=== PATIENT | male | born 1960 ===

== ENCOUNTER 2017-04-10 06:57 | Emergency (ER) | payer MEDICARE, OTHER ==
[2017-04-10 07:07] VITALS: BP 167/100; PULSE 101; RESP 17; TEMP 98; O2SAT 98
--- NOTE | 2017-04-10 07:53 | ED PDOC ---
HPI: General Adult Time Seen by Provider: 04/10/17 07:08 Chief Complaint (Nursing): Abnormal Skin Integrity Chief Complaint (Provider): Abnormal Skin Integrity History Per: Patient History/Exam Limitations: no limitations Onset/Duration Of Symptoms: Days Current Symptoms Are (Timing): Still Present Severity: Mild Additional Complaint(s): Patient is a 56 year old male who presents to ED for multiple medical complaints including rash, "lip heaviness", bilateral arm weakness, dizziness, "head heaviness" and palpations that began yesterday. Patient states rash is itchy and diffuse. Denies chest pain, headache, vision changes or neck pain. 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 Of note, patient reports he ran out of his Norvasc 10mg yesterday. PMD: Dr. Linda Rodriges Past Medical History Reviewed: Historical Data, Nursing Documentation, Vital Signs Vital Signs: Last Vital Signs Temp 98.0 F 04/10/17 07:04 Pulse 101 H 04/10/17 07:04 Resp 17 04/10/17 07:04 BP 167/100 H 04/10/17 07:04 Pulse Ox 98 04/10/17 07:57 - Medical History PMH: Anxiety, Bipolar Disorder, CVA, Depression, HTN, Hypercholesterolemia Denies: Diabetes, Hepatitis, HIV, Chronic Kidney Disease, Seizures, Sexually Transmitted Disease - Surgical History Surgical History: No Surg Hx - Family History Family History: States: Unknown Family Hx - Immunization History Hx Tetanus Toxoid Vaccination: No Hx Influenza Vaccination: No Hx Pneumococcal Vaccination: No - Home Medications Home Medications: Ambulatory Orders Medication Instructions Recorded Escitalopram [Lexapro] 1 tab PO DAILY 12/11/14 Diphenhydramine HCl/Zinc Acet 28.3 gm TP DAILY PRN #1 cream..g. 04/10/17 [Benadryl Itch Stopping Crm] - Allergies Allergies/Adverse Reactions: Allergies Allergy/AdvReac Type Severity Reaction Status Date / Time No Known Allergies Allergy Verified 06/25/16 05:59 Review of Systems ROS Statement: Except As Marked, All Systems Reviewed And Found Negative Constitutional: Negative for: Fever, Chills Eyes: Negative for: Vision Change Cardiovascular: Positive for: Palpitations. Negative for: Chest Pain, Light Headedness Respiratory: Negative for: Shortness of Breath Gastrointestinal: Negative for: Nausea, Vomiting, Abdominal Pain Musculoskeletal: Negative for: Neck Pain, Back Pain Skin: Positive for: Rash Neurological: Positive for: Weakness (bilateral arms ), Dizziness, Other (" head heaviness" ). Negative for: Numbness, Headache Physical Exam - Reviewed Nursing Documentation Reviewed: Yes Vital Signs Reviewed: Yes - Physical Exam Appears: Positive for: Non-toxic, No Acute Distress Head Exam: Positive for: ATRAUMATIC Skin: Positive for: Normal Color, Warm, Rash (petechiae bilateral arms) Eye Exam: Positive for: Normal appearance Neck: Positive for: Normal, Painless ROM Cardiovascular/Chest: Positive for: Regular Rate, Rhythm. Negative for: Murmur Respiratory: Positive for: Normal Breath Sounds. Negative for: Respiratory Distress Extremity: Positive for: Normal ROM Neurologic/Psych: Positive for: Alert, Oriented, Facial Droop (chronic left secondary to bells palsy ). Negative for: Motor/Sensory Deficits - Laboratory Results Result Diagrams: 04/10/17 08:32 04/10/17 08:32 - ECG O2 Sat by Pulse Oximetry: 98 (RA) Pulse Ox Interpretation: Normal - CT Scan/US CT head Other Rad Studies (CT/US): Radiology Report Reviewed (No acute intracranial abnormalities. No significant findings to account for the clinical presentation. ) Medical Decision Making Medical Decision Making: Time: 724 Initial impression: Rash Initial plan: -- CT-head -- CMP -- CBC -- PT/PTT -- U/A Scribe Attestation: Documented by Amanda Ha acting as a scribe for Diana Wilkerson MD MD Scribe Attestation: All medical record entries made by the Scribe were at my direction and personally dictated by me. I have reviewed the chart and agree that the record accurately reflects my personal performance of the history, physical exam, medical decision making, and the department course for this patient. I have also personally directed, reviewed, and agree with the discharge instructions and disposition. Disposition - Clinical Impression Clinical Impression: Rash - Disposition Referrals: [facility] [Outside] Disposition: Routine/Home Disposition Time: 10:35 Condition: STABLE Prescriptions: Diphenhydramine HCl/Zinc Acet [Benadryl Itch Stopping Crm] 28.3 gm TP DAILY PRN #1 cream..g. PRN Reason: Itching / Pruritus Instructions: Acute Rash (ED)
[2017-04-10 08:43] LABS: BASO # 0.1 K/uL (0.0-0.2); BASO % 0.9 % (0.0-2.0); EOS # 0.3 K/uL (0.0-0.7); EOS % 4.3 % (0.0-4.0); HEMATOCRIT 41.7 % (35.0-51.0); LYMPH # 1.1 K/uL (1.0-4.3); LYMPH % 14.5 % (20.0-40.0); MEAN CELL VOLUME 82.6 fl (80.0-94.0); MEAN CORPUSCULAR HEMOGLOBIN 27.1 pg (27.0-31.0); MEAN CORPUSCULAR HGB CONC 32.9 g/dL (33.0-37.0); MEAN PLATELET VOLUME 9.3 fl (7.2-11.7); MONO # 0.6 K/uL (0.0-0.8); MONO % 8.2 % (0.0-10.0); NEUT # 5.4 K/uL (1.8-7.0); NEUT % 72.1 % (50.0-75.0); NRBC % 0.1 % (0.0-0.0); RED CELL DISTRIBUTION WIDTH 14.4 % (11.5-14.5); WHITE BLOOD COUNT 7.5 K/uL (4.8-10.8)
[2017-04-10 08:57] LABS: ALB/GLOB RATIO 1.3 (1.0-2.1); ALKALINE PHOSPHATASE 80 U/L (38-126); ALT/SGPT 36 U/L (21-72); AST/SGOT 46 U/L (17-59); BILIRUBIN,TOTAL 0.6 mg/dl (0.2-1.3); BLOOD UREA NITROGEN 23 mg/dl (9-20); CALCIUM 9.6 mg/dL (8.4-10.2); CARBON DIOXIDE 27 mmol/L (22-30); CHLORIDE 99 mmol/L (98-107); GFR AFRICAN-AMERICAN > 60; GLUCOSE,RANDOM 121 mg/dL (75-110); POTASSIUM 4.6 MMOL/L (3.6-5.0); SODIUM 139 mmol/l (132-148); TOTAL PROTEIN 8.3 G/DL (6.3-8.2)
[2017-04-10 09:16] LABS: PARTIAL THROMBOPLASTIN TIME 25.2 SECONDS (23.3-32.5)
[2017-04-10 10:12] LABS: RBC URINE 2 /hpf (0-3); URINE BACTERIA RARE (<OCC); URINE BILIRUBIN NEGATIVE (NEGATIVE); URINE BLOOD NEGATIVE (NEGATIVE); URINE COLOR YELLOW (YELLOW); URINE GLUCOSE (UA) NEG (Normal); URINE KETONE NEGATIVE (NEGATIVE); URINE LEUKOCYTE ESTERASE NEG Leu/uL (Negative); URINE PROTEIN NEGATIVE (NEGATIVE); URINE UROBILINOGEN 0.2-1.0 mg/dL (0.2-1.0); WBC URINE 2 /hpf (0-5)
--- NOTE | 2017-04-10 10:35 | CT ---
PROCEDURE: CT HEAD WITHOUT CONTRAST. HISTORY: UMANZOR COMPARISON: None available. TECHNIQUE: Axial computed tomography images were obtained through the head/brain without intravenous contrast. Radiation dose: Total exam DLP = ivan mGy-cm. This CT exam was performed using one or more of the following dose reduction techniques: Automated exposure control, adjustment of the mA and/or kV according to patient size, and/or use of iterative reconstruction technique. FINDINGS: HEMORRHAGE: No intracranial hemorrhage. BRAIN: No mass effect or edema. No atrophy or chronic microvascular ischemic changes. VENTRICLES: Unremarkable. No hydrocephalus. CALVARIUM: Unremarkable. PARANASAL SINUSES: Unremarkable as visualized. No significant inflammatory changes. MASTOID AIR CELLS: Unremarkable as visualized. No inflammatory changes. OTHER FINDINGS: None. IMPRESSION: No acute intracranial abnormalities. No significant findings to account for the clinical presentation.
== END 2017-04-10 11:11 | disposition home or self-care (01) ==
LOC: H.ER 06:57
DX: R21 Rash and other nonspecific skin eruption (principal); R42 Dizziness and giddiness; M62.81 Muscle weakness (generalized); I10 Essential (primary) hypertension; E11.9 Type 2 diabetes mellitus without complications

== ENCOUNTER 2017-07-12 08:50 | Inpatient (IN) | payer MEDICARE, OTHER ==
--- NOTE | 2017-07-12 09:50 | ED PDOC ---
Hyperglycemia/Hypoglycemia Time Seen by Provider: 07/12/17 09:20 Chief Complaint (Nursing): High Blood Sugar Chief Complaint (Provider): Generalized weakness History Per: Patient History/Exam Limitations: no limitations Onset/Duration Of Symptoms: Days (x 1 week) Current Symptoms Are (Timing): Still Present : The patient does not have any of the infectious symptoms listed except for those marked. Additional Complaint(s): Cachorro is a 57 y/o male with a past medical history of depression, hypertension, diabetes, and Arenas's palsy, who presents to the ED complaining of generalized weakness, ongoing for 1 week. Patient states he was evicted from home due to infestation of bed bugs and apartment is currently being decontaminated. Denies any associated chest pain, shortness or breath, or focal weakness. PMD: None Past Medical History Reviewed: Historical Data, Nursing Documentation, Vital Signs - Medical History PMH: Anxiety, Bipolar Disorder, CVA, Depression, Diabetes, HTN, Hypercholesterolemia Denies: Hepatitis, HIV, Chronic Kidney Disease, Seizures, Sexually Transmitted Disease Other PMH: Arenas's palsy - Surgical History Surgical History: No Surg Hx - Family History Family History: States: Unknown Family Hx - Social History Current smoker - smoking cessation education provided: No Alcohol: None Drugs: Denies - Immunization History Hx Tetanus Toxoid Vaccination: No Hx Influenza Vaccination: No Hx Pneumococcal Vaccination: No - Home Medications Home Medications: Ambulatory Orders Medication Instructions Recorded Escitalopram [Lexapro] 1 tab PO DAILY 12/11/14 Diphenhydramine HCl/Zinc Acet 28.3 gm TP DAILY PRN #1 cream..g. 04/10/17 [Benadryl Itch Stopping Crm] - Allergies Allergies/Adverse Reactions: Allergies Allergy/AdvReac Type Severity Reaction Status Date / Time No Known Allergies Allergy Verified 06/25/16 05:59 Review of Systems ROS Statement: Except As Marked, All Systems Reviewed And Found Negative Constitutional: Positive for: Weakness (Generalized weakness) Cardiovascular: Negative for: Chest Pain Respiratory: Negative for: Shortness of Breath Neurological: Negative for: Weakness (focal weakness) Physical Exam - Reviewed Nursing Documentation Reviewed: Yes Vital Signs Reviewed: Yes - Physical Exam Appears: Positive for: Non-toxic, No Acute Distress Head Exam: Positive for: ATRAUMATIC, NORMAL INSPECTION, NORMOCEPHALIC Skin: Positive for: Normal Color, Warm, Dry Eye Exam: Positive for: EOMI, Normal appearance, PERRL Neck: Positive for: Normal, Painless ROM, Supple Cardiovascular/Chest: Positive for: Regular Rate, Rhythm. Negative for: Murmur Respiratory: Positive for: Normal Breath Sounds. Negative for: Accessory Muscle Use, Respiratory Distress Gastrointestinal/Abdominal: Positive for: Normal Exam, Soft. Negative for: Tenderness Back: Positive for: Normal Inspection. Negative for: Vertebral Tenderness Extremity: Positive for: Normal ROM. Negative for: Pedal Edema, Deformity Neurologic/Psych: Positive for: Alert, Oriented (x 3), Other (Left facial weakness). Negative for: Motor/Sensory Deficits (peripheral motor or sensory deficits) - Laboratory Results Result Diagrams: 07/12/17 10:11 07/12/17 10:11 Medical Decision Making Medical Decision Making: Time: 9:42 Initial Plan: --CMP --CBC --Urine dipstick --EKG --Pending CXR 2 views Scribe Attestation: Documented by Gloria Main, acting as a scribe for Josiah Jacobson MD Provider Scribe Attestation: All medical record entries made by the Scribe were at my direction and personally dictated by me. I have reviewed the chart and agree that the record accurately reflects my personal performance of the history, physical exam, medical decision making, and the department course for this patient. I have also personally directed, reviewed, and agree with the discharge instructions and disposition. Disposition - Clinical Impression Clinical Impression: Anemia - Patient ED Disposition Is Patient to be Admitted: Yes - Disposition Disposition Time: 10:52 Condition: FAIR Forms: [employer] (Sinhala) - Pt Status Changed To: Hospital Disposition Of: Observation - POA Present On Arrival: None
[2017-07-12 10:16] LABS: BASO # 0.1 K/uL (0.0-0.2); BASO % 1.4 % (0.0-2.0); EOS # 0.3 K/uL (0.0-0.7); EOS % 3.1 % (0.0-4.0); HEMOGLOBIN 9.5 g/dL (12.0-18.0); LYMPH # 0.8 K/uL (1.0-4.3); LYMPH % 9.6 % (20.0-40.0); MEAN CORPUSCULAR HEMOGLOBIN 25.6 pg (27.0-31.0); MEAN PLATELET VOLUME 9.4 fl (7.2-11.7); MONO # 0.6 K/uL (0.0-0.8); MONO % 7.1 % (0.0-10.0); NEUT # 6.6 K/uL (1.8-7.0); NEUT % 78.8 % (50.0-75.0); PLATELET COUNT 259 K/uL (130-400); RBC 3.73 Mil/uL (4.40-5.90); WHITE BLOOD COUNT 8.4 K/uL (4.8-10.8)
[2017-07-12 10:35] LABS: ALB/GLOB RATIO 1.2 (1.0-2.1); ALBUMIN 4.3 g/dL (3.5-5.0); ALT/SGPT 40 U/L (21-72); AST/SGOT 36 U/L (17-59); BLOOD UREA NITROGEN 20 mg/dl (9-20); CALCIUM 9.6 mg/dL (8.4-10.2); GFR AFRICAN-AMERICAN > 60; GFR NON-AFRICAN AMERICAN > 60
[2017-07-12] MEDS ORDERED: Sodium Chloride 0.9% 1,000 ML IV STA (10:51)
--- NOTE | 2017-07-12 10:52 | RAD ---
HISTORY: weakness COMPARISON: Chest x-ray performed 12/12/16 TECHNIQUE: Chest PA and lateral FINDINGS: Examination limited by habitus. LUNGS: Right hilar prominence. No focal consolidation. Please note that chest x-ray has limited sensitivity for the detection of pulmonary masses. PLEURA: No significant pleural effusion identified. No definite pneumothorax . CARDIOVASCULAR: Heart size appears top normal. OSSEOUS STRUCTURES: Degenerative changes. VISUALIZED UPPER ABDOMEN: Elevation of the right hemidiaphragm. OTHER FINDINGS: None. IMPRESSION: Right hilar prominence. Elevation of the right hemidiaphragm.
[2017-07-12 10:54] LABS: BASOPHIL 1 % (0-2); EOSINOPHIL 2 % (0-7); LYMPHOCYTE 8 % (20-50); MONOCYTE 5 % (0-10); NEUTROPHIL 84 % (42-75); PLATELET ESTIMATE NORMAL (NORMAL); TOTAL CELLS COUNTED 100
--- NOTE | 2017-07-12 12:14 | CP.PCM.CON ---
Addendum entered and electronically signed by Oanh Valentine DO 07/12/17 13:04: After rounding with Dr. Dunbar, no plan for endoscopic evaluation at this time due to scabies infestation and capacity concern. No GI bleed at this time, continue to monitor, and can place on diet. Original Note: <Oanh Valentine - Last Filed: 07/12/17 12:45> History of Present Illness - History of Present Illness History of Present Illness: GI Fellow PGY4 Consult Note This is a 57yM with pmhx of HTN, DM, Arenas's palsy, Depression/Anxiety/Bipolar Disorder pw co of generalized weakness for 1 year. Pt reports that he has been experiencing fatigue, dizziness and intermittent SOB but denies any CP. Pt denies any signs of rectal bleeding, melena, hematochezia, abdominal pain, nausea or vomiting. He does state poor appetite for 1 yr, does not feel like eating from depression and does not like new living place. Pt denies any abdominal pain or diarrhea with food intake. No prior screening colonoscopy and no family hx of colon cancer. Pt reports that he has never been anemic and no hx of GI bleed. Pt does take baby aspirin daily but denies Advil, Aleve, or Ibuprohrn use. Pt does not have a hx of alcohol abuse. ROS: A 12pt ROS was obtained and was negative except as above PmHx: As stated in HPI PsHx: Denies FHx: Denies hx of cancer SHx: Denies tobacco, alcohol or illicit drug use Past Patient History - Infectious Disease Hx of Infectious Diseases: None - Past Social History Alcohol: None Drugs: Denies - CARDIAC Hx Cardiac Disorders: (HTN) - PULMONARY Hx Tuberculosis: No - NEUROLOGICAL Hx Neurological Disorder: (BELLS PALSY) - HEENT Hx HEENT Problems: No - RENAL Hx Chronic Kidney Disease: No - ENDOCRINE/METABOLIC Hx Endocrine Disorders: (DM) - HEMATOLOGICAL/ONCOLOGICAL Hx Human Immunodeficiency Virus (HIV): No - INTEGUMENTARY Hx Dermatological Problems: No - MUSCULOSKELETAL/RHEUMATOLOGICAL Hx Musculoskeletal Disorders: No - GASTROINTESTINAL Hx Gastrointestinal Disorders: No - GENITOURINARY/GYNECOLOGICAL Hx Sexually Transmitted Disorders: No - PSYCHIATRIC Hx Anxiety: Yes Hx Bipolar Disorder: Yes Hx Depression: Yes - SURGICAL HISTORY Hx Surgeries: No - ANESTHESIA Hx Anesthesia: No Meds Allergies/Adverse Reactions: Allergies Allergy/AdvReac Type Severity Reaction Status Date / Time No Known Allergies Allergy Verified 06/25/16 05:59 - Medications Medications: Current Medications Sodium Chloride (Sodium Chloride 0.9%) 1,000 mls @ 100 mls/hr IV .Q10H STA Stop: 07/12/17 20:50 Last Admin: 07/12/17 10:59 Dose: 100 mls/hr Physical Exam - Constitutional Appears: Non-toxic, No Acute Distress - Head Exam Head Exam: ATRAUMATIC, NORMAL INSPECTION, NORMOCEPHALIC - Eye Exam Eye Exam: EOMI, Normal appearance, PERRL Pupil Exam: PERRL - ENT Exam ENT Exam: Mucous Membranes Moist, Normal Exam - Neck Exam Neck exam: Positive for: Full Rom, Normal Inspection - Respiratory Exam Respiratory Exam: Clear to Auscultation Bilateral, NORMAL BREATHING PATTERN - Cardiovascular Exam Cardiovascular Exam: RRR, +S1, +S2 - GI/Abdominal Exam GI & Abdominal Exam: Normal Bowel Sounds, Soft. absent: Distended, Firm, Guarding, Organomegaly, Tenderness - Rectal Exam Additional comments: no hemorrhoids, light brown stool, no melena, no hematochezia - Extremities Exam Extremities exam: Positive for: full ROM, normal inspection - Back Exam Back exam: NORMAL INSPECTION - Neurological Exam Neurological exam: Alert, Oriented x3 - Psychiatric Exam Psychiatric exam: Anxious, Normal Mood - Skin Skin Exam: Dry, Intact, Normal Color, Warm Results - Vital Signs Recent Vital Signs: Last Vital Signs Temp 98 F 07/12/17 11:38 Pulse 72 07/12/17 11:38 Resp 17 07/12/17 11:38 BP 156/80 H 07/12/17 11:38 Pulse Ox 97 07/12/17 11:38 - Labs Result Diagrams: 07/12/17 10:11 07/12/17 10:11 Assessment & Plan - Assessment and Plan (Free Text) Assessment: This is a 57yM pw generalized weakness 1. Symptomatic anemia, microcytic 2. HTN 3. DM 4. Depression/Bipolar Disorder Plan: -Anemia with no signs of active GI bleeding,rectal exam negative for melena/ hematochezia, hemodynamically stable -Microcytic Anemia-will order iron profile study and celiac workup -Plan EGD/Colonoscopy for Saturday07/16/17 to r/o GI bleed as source of anemia also needs screening colonoscopy -Continue supportive care and monitor Hgb <Bettina RODRIGUEZ,[facility] - Last Filed: 07/12/17 13:16> Meds - Medications Medications: Current Medications Sodium Chloride (Sodium Chloride 0.9%) 1,000 mls @ 100 mls/hr IV .Q10H STA Stop: 07/12/17 20:50 Last Admin: 07/12/17 10:59 Dose: 100 mls/hr Results - Vital Signs Recent Vital Signs: Last Vital Signs Temp 98 F 07/12/17 11:38 Pulse 72 07/12/17 11:38 Resp 17 07/12/17 11:38 BP 156/80 H 07/12/17 11:38 Pulse Ox 97 07/12/17 11:38 - Labs Result Diagrams: 07/12/17 10:11 07/12/17 10:11 Attending/Attestation - Attestation I have personally seen and examined this patient.: Yes I have fully participated in the care of the patient.: Yes I have reviewed all pertinent clinical information: Yes Notes (Text): 07/12/17 13:12 Patient seen at bedside with GI fellow. This is a 57 yr old M presented with generalized weakness and hypoglycemia. Found to have microcytic anemia which is new. Rectal exam with brown stool. No overt signs of GI bleeding. Will order iron panel. Questionable history of alcohol abuse. During interview patient obsessively talks about the craven that was taken away from him. Prudent to do EGD / colonoscopy but currently has active bed bug infestation with belongings infested with it. Will hold off on luminal exam and can be done as outpatient. Diet as tolerated.
--- NOTE | 2017-07-12 13:18 | CARD ---
APPROVED REPORT EKG Measurement Heart [id number] <Conclusion> Normal sinus rhythm with sinus arrhythmia Left axis deviation Left ventricular hypertrophy with QRS widening Abnormal ECG
[2017-07-12 15:58] LABS: BASO # 0.1 K/uL (0.0-0.2); BASO % 0.9 % (0.0-2.0); EOS # 0.3 K/uL (0.0-0.7); EOS % 3.5 % (0.0-4.0); HEMOGLOBIN 8.8 g/dL (12.0-18.0); LYMPH # 1.2 K/uL (1.0-4.3); LYMPH % 14.3 % (20.0-40.0); MEAN CELL VOLUME 79.5 fl (80.0-94.0); MEAN CORPUSCULAR HEMOGLOBIN 25.5 pg (27.0-31.0); MEAN PLATELET VOLUME 9.1 fl (7.2-11.7); MONO # 0.7 K/uL (0.0-0.8); MONO % 8.9 % (0.0-10.0); NEUT # 5.8 K/uL (1.8-7.0); NEUT % 72.4 % (50.0-75.0); RBC 3.47 Mil/uL (4.40-5.90); RED CELL DISTRIBUTION WIDTH 14.1 % (11.5-14.5); WHITE BLOOD COUNT 8.1 K/uL (4.8-10.8)
[2017-07-12 17:04] LABS: IRON 15 ug/dL (49-181)
[2017-07-12 17:14] LABS: % IRON SATURATION 4 % (20-55); TOTAL IRON BINDING CAPACITY 374 ug/dL (250-450)
[2017-07-12 17:18] LABS: INR 1.2 (0.9-1.2); PARTIAL THROMBOPLASTIN TIME 26.2 Seconds (25.6-37.1); PROTHROMBIN TIME 12.5 Seconds (9.8-13.1)
[2017-07-13] MEDS: Pantoprazole 40 mg EC Tab PO SCH (08:34)
[2017-07-13 08:45] LABS: HDL CHOLESTEROL 38 MG/DL (30-70)
[2017-07-13 08:56] LABS: LDL CHOLESTEROL 99 mg/dL (0-129)
--- NOTE | 2017-07-13 13:28 | CP.PCM.HP ---
History of Present Illness - History of Present Illness History of Present Illness: 57 y/o male with PMHx that includes HTN, DM type( as per patient just controlled with diet at this time, he is not taking any medications), and depression who presents to ED c/o weakness for one and a half month. The weakness has been progressively getting worse, and reports one episode of blood in stools, and recent episodes of dizziness. Denies Cp, SOB, N/V, abdominal pain , black stools. Patient states he was evicted from home due to infestation of bed bugs and apartment is currently being decontaminated. Present on Admission - Present on Admission Any Indicators Present on Admission: No History of DVT/PE: No History of Uncontrolled Diabetes: No Urinary Catheter: No Decubitus Ulcer Present: No Review of Systems - Review of Systems All systems: reviewed and no additional remarkable complaints except (as per HPI ) Past Patient History - Infectious Disease Hx of Infectious Diseases: None - Past Social History Smoking Status: Former Smoker - CARDIAC Hx Cardiac Disorders: (HTN) - PULMONARY Hx Tuberculosis: No - NEUROLOGICAL Hx Neurological Disorder: (BELLS PALSY) - HEENT Hx HEENT Problems: No - RENAL Hx Chronic Kidney Disease: No - ENDOCRINE/METABOLIC Hx Endocrine Disorders: (DM) - HEMATOLOGICAL/ONCOLOGICAL Hx Human Immunodeficiency Virus (HIV): No - INTEGUMENTARY Hx Dermatological Problems: No - MUSCULOSKELETAL/RHEUMATOLOGICAL Hx Musculoskeletal Disorders: No Hx Falls: No - GASTROINTESTINAL Hx Gastrointestinal Disorders: No - GENITOURINARY/GYNECOLOGICAL Hx Sexually Transmitted Disorders: No - PSYCHIATRIC Hx Anxiety: Yes Hx Bipolar Disorder: Yes Hx Depression: Yes Hx Substance Use: No - SURGICAL HISTORY Hx Surgeries: No - ANESTHESIA Hx Anesthesia: No Meds Allergies/Adverse Reactions: Allergies Allergy/AdvReac Type Severity Reaction Status Date / Time No Known Allergies Allergy Verified 06/25/16 05:59 Physical Exam - Constitutional Appears: No Acute Distress - ENT Exam ENT Exam: Mucous Membranes Moist - Respiratory Exam Respiratory Exam: Clear to Auscultation Bilateral, NORMAL BREATHING PATTERN - Cardiovascular Exam Cardiovascular Exam: REGULAR RHYTHM, +S1, +S2 - GI/Abdominal Exam GI & Abdominal Exam: Normal Bowel Sounds, Soft. absent: Distended, Guarding, Rebound, Rigid, Tenderness - Extremities Exam Extremities exam: Positive for: normal inspection. Negative for: calf tenderness, pedal edema - Neurological Exam Neurological exam: Alert, Oriented x3 - Skin Skin Exam: Dry, Intact, Pallor Results - Vital Signs Recent Vital Signs: Last Vital Signs Temp 97.8 F 07/13/17 08:27 Pulse 76 07/13/17 08:27 Resp 20 07/13/17 08:27 BP 174/81 H 07/13/17 08:34 Pulse Ox 92 L 07/13/17 08:27 - Labs Result Diagrams: 07/12/17 15:40 07/12/17 10:11 Assessment & Plan (1) Anemia Status: Acute Comment: H/H: 8.8/27.6. consider type and cross. consider transfusion if hgb < 7. f/u CBC. GI consult, f/u recommendations. Consider Colonoscopy (2) Hypertension Status: Chronic Comment: c/w home medication, amlodipine. c/w BP monitor (3) Diabetes mellitus type 2 in obese Status: Chronic Comment: as per patient DM is controlled with diet. f/u HgbA1C. f/u accucheck. diabetic diet (4) History of depression Status: Chronic Comment: denies suicidal/homicidal ideation at this evaluation. controlled. c/ w home meds - Assessment and Plan (Free Text) Assessment: 57 y/o M admitted with symptomatic anemia to r/o active GI bleeding. - Date & Time Date: 07/12/17 Time: 15:40
--- NOTE | 2017-07-13 20:04 | HP ---
DATE: 07/13/2017 CHIEF COMPLAINT: Generalized weakness and high sugar. HISTORY OF PRESENT ILLNESS: This is a 57-year-old male, known case of diabetes, hypertension, depression, Arenas's palsy, who lives in a long-term, who was evicted from the long-term due to in fact the patient to have bed bugs, was feeling generalized weakness with high blood sugars, so the patient was brought to emergency room and was admitted for further management. REVIEW OF SYSTEMS: It is positive for generalized weakness. Review of systems is otherwise negative for headache, dizziness, syncope, loss of consciousness, chest pain, shortness of breath, nausea, vomiting, diarrhea, constipation and any knee joint or extremity pain. Review of system for other organ system is unremarkable. PAST MEDICAL HISTORY: Significant for diabetes, hypertension, elevated cholesterol, obesity, anxiety, bipolar disorder, history of Arenas's palsy. PAST SURGICAL HISTORY: Unremarkable. PERSONAL HISTORY: The patient is currently nonsmoker, nondrinker, no substance abuse and homeless. ALLERGIES: THE PATIENT IS NOT ALLERGIC TO ANY MEDICATION. FAMILY HISTORY: Noncontributory. MEDICATIONS: The patient is currently taking Lexapro and Benadryl cream. PHYSICAL EXAMINATION: GENERAL: Well-built, well-nourished, overweight 57-year-old male in no acute distress. VITAL SIGNS: Temperature 99.1, pulse 80, respirations 20, blood pressure 137/76. HEENT: Pupils reactive to light. No JVD, no thyromegaly, no lymphadenopathy, no nystagmus. Normocephalic and atraumatic skull. HEART: S1 and S2 normal and regular. No significant murmur, gallop or rub is heard. LUNGS: Shows good bilateral air entry. No rales or rhonchi. ABDOMEN: Soft, nontender. No organomegaly. No bruits. Bowel sounds are present. EXTERNAL GENITALIA: Appropriate for the patient's age. RECTAL: Stool for occult blood was negative. EXTREMITIES: No edema. No calf swelling. No tenderness. No acute ischemia. CENTRAL NERVOUS SYSTEM: Essentially unchanged. There is no sign of any acute gross focal, motor or sensory neurological deficits. DIAGNOSTIC DATA: Available diagnostic data reveals WBC 8.1, hemoglobin 8.8, hematocrit 27.6, platelets 257. PT 12.5, PTT 26.2. Sodium 140, potassium 3.7, chloride 104, bicarb 26, BUN 20, creatinine 0.9. Accu-Cheks are 130 and 120. Iron level is 15, TIBC is 374. SMA-12 is unremarkable. Neurological consult noted and appreciated. Chest x-ray is clear. EKG does not reveal any acute ST-T changes. ADMITTING IMPRESSION: Anemia, hyperglycemia, morbid obesity, hypertension, elevated cholesterol. PLAN: As ordered. Case and plan discussed with the patient. Darius Dumont MD
[2017-07-14 01:29] VITALS: RESP 20
[2017-07-14 08:08] LABS: HEMOGLOBIN 9.6 g/dL (12.0-18.0); MEAN CELL VOLUME 78.8 fl (80.0-94.0); MEAN CORPUSCULAR HEMOGLOBIN 26.2 pg (27.0-31.0); MEAN CORPUSCULAR HGB CONC 33.3 g/dL (33.0-37.0); RBC 3.66 Mil/uL (4.40-5.90); WHITE BLOOD COUNT 6.2 K/uL (4.8-10.8)
[2017-07-14 08:35] LABS: ALB/GLOB RATIO 1.2 (1.0-2.1); ALT/SGPT 34 U/L (21-72); AST/SGOT 29 U/L (17-59); BLOOD UREA NITROGEN 15 mg/dl (9-20); CALCIUM 9.2 mg/dL (8.4-10.2); GFR AFRICAN-AMERICAN > 60; GFR NON-AFRICAN AMERICAN > 60
[2017-07-14] MEDS: Pantoprazole 40 mg EC Tab PO SCH (08:46)
--- NOTE | 2017-07-14 14:51 | PN ---
DATE: 07/14/2017 SUBJECTIVE: The patient seen and examined. Interim events noted. The patient remains in regular medical floor. Denies . The patient denies any specific complaint of chest pain or shortness. The patient does complain of generalized weakness. PHYSICAL EXAMINATION: GENERAL: The patient is in no acute distress. VITAL SIGNS: Stable. HEART: S1 and S2 normal and regular. LUNGS: Good bilateral air exchange. ABDOMEN: Soft and nontender. EXTREMITIES: No edema. No calf swelling. No tenderness. No acute ischemia. CENTRAL NERVOUS SYSTEM: Essentially unchanged. DIAGNOSTIC DATA: Available diagnostic data reviewed. Overall, the patient's general medical condition is stable. Hemoglobin is 9.6. PLAN: As ordered. Case and plan discussed with the patient. Darius Dumont MD
[2017-07-15 06:46] LABS: HEMOGLOBIN 9.8 g/dL (12.0-18.0); MEAN CELL VOLUME 81.3 fl (80.0-94.0); MEAN CORPUSCULAR HEMOGLOBIN 26.2 pg (27.0-31.0); MEAN CORPUSCULAR HGB CONC 32.2 g/dL (33.0-37.0); RBC 3.73 Mil/uL (4.40-5.90); RED CELL DISTRIBUTION WIDTH 14.4 % (11.5-14.5); WHITE BLOOD COUNT 8.7 K/uL (4.8-10.8)
[2017-07-15 06:58] LABS: ALB/GLOB RATIO 1.2 (1.0-2.1); ALT/SGPT 35 U/L (21-72); AST/SGOT 24 U/L (17-59); BLOOD UREA NITROGEN 15 mg/dl (9-20); CALCIUM 9.3 mg/dL (8.4-10.2); GFR AFRICAN-AMERICAN > 60; GFR NON-AFRICAN AMERICAN > 60
[2017-07-15 07:26] VITALS: BP 143/82; PULSE 87; TEMP 97.7; O2SAT 97
[2017-07-15] MEDS: Pantoprazole 40 mg EC Tab PO SCH (08:46)
--- NOTE | 2017-07-15 08:47 | PN ---
DATE: 07/15/2017 SUBJECTIVE: The patient is seen and examined. Interim events noted. Labs reviewed. The patient feels okay. No specific complaint. No chest pain. No shortness of breath. The patient complains of generalized weakness. PHYSICAL EXAMINATION GENERAL: The patient is in no acute distress. VITAL SIGNS: Stable. HEART: S1 and S2 normal and regular. LUNGS: Good bilateral air exchange. ABDOMEN: Soft and nontender. EXTREMITIES: No edema. No calf swelling. No tenderness. No acute ischemia. CENTRAL NERVOUS SYSTEM: Essentially unchanged. DIAGNOSTIC DATA: Available diagnostic data reviewed. Overall, the patient is medically stable. PLAN: As ordered. Darius Dumont MD
== END 2017-07-15 15:57 | disposition home or self-care (01) | DRG 812 ==
LOC: H.ER 08:50 → H.ERHOLD 10:49 → H.MEDSURG1 12:32 → OBSVTOIN 07-13 10:56
PROVIDERS: ADMIT Internal Medicine; ATTEND Internal Medicine
DX: D50.8 Other iron deficiency anemias (principal); E11.65 Type 2 diabetes mellitus with hyperglycemia; I10 Essential (primary) hypertension; B86 Scabies; B88.8 Other specified infestations; Z68.38 Body mass index [BMI] 38.0-38.9, adult; E66.01 Morbid (severe) obesity due to excess calories; F31.9 Bipolar disorder, unspecified; F41.9 Anxiety disorder, unspecified; E78.00 Pure hypercholesterolemia, unspecified; Z86.73 Personal history of transient ischemic attack (TIA), and cerebral infarction without residual deficits; Z87.891 Personal history of nicotine dependence; Z59.0 Homelessness

== ENCOUNTER 2017-07-18 07:03 | Observation (INO) | payer MEDICARE, OTHER ==
[2017-07-18 08:05] LABS: BASO % 0.8 % (0.0-2.0); EOS # 0.3 K/uL (0.0-0.7); EOS % 4.4 % (0.0-4.0); HEMATOCRIT 29.9 % (35.0-51.0); LYMPH # 0.9 K/uL (1.0-4.3); LYMPH % 14.6 % (20.0-40.0); MEAN CELL VOLUME 81.1 fl (80.0-94.0); MEAN CORPUSCULAR HEMOGLOBIN 26.1 pg (27.0-31.0); MEAN CORPUSCULAR HGB CONC 32.2 g/dL (33.0-37.0); MEAN PLATELET VOLUME 9.5 fl (7.2-11.7); MONO # 0.4 K/uL (0.0-0.8); MONO % 7.3 % (0.0-10.0); NEUT # 4.3 K/uL (1.8-7.0); NEUT % 72.9 % (50.0-75.0); NRBC % 0.1 % (0.0-0.0); RED CELL DISTRIBUTION WIDTH 14.9 % (11.5-14.5); WHITE BLOOD COUNT 5.9 K/uL (4.8-10.8)
[2017-07-18 08:17] LABS: ALB/GLOB RATIO 1.1 (1.0-2.1); ALKALINE PHOSPHATASE 71 U/L (38-126); ALT/SGPT 42 U/L (21-72); AST/SGOT 39 U/L (17-59); BILIRUBIN,TOTAL 0.6 mg/dl (0.2-1.3); BLOOD UREA NITROGEN 17 mg/dl (9-20); CALCIUM 9.1 mg/dL (8.4-10.2); CARBON DIOXIDE 27 mmol/L (22-30); CHLORIDE 105 mmol/L (98-107); GFR AFRICAN-AMERICAN > 60; GLUCOSE,RANDOM 113 mg/dL (75-110); POTASSIUM 3.6 MMOL/L (3.6-5.0); SODIUM 142 mmol/l (132-148); TOTAL PROTEIN 7.7 G/DL (6.3-8.2)
--- NOTE | 2017-07-18 08:28 | ED PDOC ---
Upper Extremity Pain/Injury Time Seen by Provider: 07/18/17 07:10 Chief Complaint (Nursing): Finger,Hand,&Wrist Chief Complaint (Provider): right hand pain/swelling History Per: Patient History/Exam Limitations: no limitations Onset/Duration Of Symptoms: Days (2) Current Symptoms Are (Timing): Still Present Quality: Sharp Severity: Moderate Exacerbating Factor(s): Movement Additional Complaint(s): 57yo male admitted saturday, discharged saturday for possible GI bleed, now represents w hand pain and tingling, associated mild redness and swelling. Denies fever, elbow pain or shoulder pain. Past Medical History Reviewed: Historical Data, Nursing Documentation, Vital Signs Vital Signs: Last Vital Signs Temp 98.8 F 07/18/17 07:12 Pulse 90 07/18/17 07:12 Resp 16 07/18/17 07:12 BP 164/96 H 07/18/17 07:12 Pulse Ox 99 07/18/17 07:12 - Medical History PMH: Anemia, Anxiety, Bipolar Disorder, CVA, Depression, Diabetes, HTN, Hypercholesterolemia Denies: Hepatitis, HIV, Chronic Kidney Disease, Seizures, Sexually Transmitted Disease - Family History Family History: States: Unknown Family Hx - Social History Current smoker - smoking cessation education provided: No Alcohol: None - Immunization History Hx Tetanus Toxoid Vaccination: No Hx Influenza Vaccination: No Hx Pneumococcal Vaccination: No - Home Medications Home Medications: Ambulatory Orders Medication Instructions Recorded Benztropine [Cogentin] 1 mg PO HS #30 tab 07/15/17 Cyanocobalamin [Vitamin B12 100 100 mcg PO DAILY #14 tab 07/15/17 mcg Tab] Escitalopram [Lexapro] 5 mg PO DAILY #30 tab 07/15/17 Ferrous Sulfate [Feosol] 325 mg PO BID #30 tab 07/15/17 Pantoprazole [Protonix EC Tab] 40 mg PO DAILY #30 ect 07/15/17 amLODIPine [Norvasc] 10 mg PO DAILY #30 tab 07/15/17 risperiDONE [RisperDAL Tab] 2 mg PO HS #14 tab 07/15/17 - Allergies Allergies/Adverse Reactions: Allergies Allergy/AdvReac Type Severity Reaction Status Date / Time No Known Allergies Allergy Verified 06/25/16 05:59 Review of Systems ROS Statement: Except As Marked, All Systems Reviewed And Found Negative Constitutional: Negative for: Fever, Chills ENT: Negative for: Nose Discharge Cardiovascular: Negative for: Chest Pain, Palpitations Respiratory: Negative for: Cough, Shortness of Breath Gastrointestinal: Negative for: Nausea, Vomiting Genitourinary Male: Negative for: Dysuria, Frequency Musculoskeletal: Positive for: Hand Pain. Negative for: Neck Pain, Shoulder Pain, Foot Pain Skin: Negative for: Rash, Lesions, Jaundice, Bruising Neurological: Positive for: Other (R hand tingling). Negative for: Weakness, Numbness, Headache, Dizziness Physical Exam - Reviewed Nursing Documentation Reviewed: Yes Vital Signs Reviewed: Yes - Physical Exam Appears: Positive for: Well, Non-toxic, No Acute Distress Head Exam: Positive for: ATRAUMATIC, NORMAL INSPECTION, NORMOCEPHALIC Skin: Positive for: Normal Color, Warm, DRY Eye Exam: Positive for: EOMI, Normal appearance, PERRL ENT: Positive for: Normal ENT Inspection Neck: Positive for: Normal, Painless ROM Cardiovascular/Chest: Positive for: Regular Rate, Rhythm Respiratory: Positive for: CNT, Normal Breath Sounds Gastrointestinal/Abdominal: Positive for: Bowel Sounds, Soft, Other (obese). Negative for: Tenderness Back: Positive for: Normal Inspection Extremity: Positive for: Normal ROM, Swelling (mild R hand), Other (R medial hand +mild erythema and tenderness along area IV insertion tracking to wrist). Negative for: Deformity Neurologic/Psych: Positive for: Alert, Oriented - Laboratory Results Result Diagrams: 07/18/17 07:53 07/18/17 07:53 - ECG O2 Sat by Pulse Oximetry: 99 Medical Decision Making Medical Decision Making: workup for thrombophlebitis initiated Labs reviewed, WBC normal. Hgb stable from last visit. US duplex RUQ reveals clot cephalic vein into forearm. Guiac performed, negative. Initiate antibiotics and lovenox. Admitted to Dr Dumont, who cared for patient on recent admission. ? scabies last visit per prior chart, remain in isolation for now. Disposition - Clinical Impression Clinical Impression: Thrombophlebitis arm - Patient ED Disposition Is Patient to be Admitted: Yes Counseled Patient/Family Regarding: Studies Performed, Diagnosis - Disposition Disposition Time: 09:00 Condition: IMPROVED - Pt Status Changed To: Hospital Disposition Of: Inpatient - Admit Certification Admit to Inpatient:: After my assessment, the patient will require hospitalization for at least two midnights. This is because of the severity of symptoms shown, intensity of services needed, and/or the medical risk in this patient being treated as an outpatient. - POA Present On Arrival: None
[2017-07-18] MEDS ORDERED: Piperacillin/Tazobact 4.5 GM in Sodium Chloride 0.9% 100 ML IVPB STA (09:00)
--- NOTE | 2017-07-18 10:51 | US ---
PROCEDURE: Right upper extremity ultrasound Doppler venous study HISTORY: thrombophlebitis COMPARISON: No prior similar study for comparison TECHNIQUE: Ultrasound Doppler venous evaluation of the right upper extremity was performed. FINDINGS: There is filling defect in the proximal right cephalic vein at the level of the breast and distal forearm. The proximal right cephalic vein is noncompressible and demonstrates no blood flow consistent with vein thrombosis. The distal portion of the cephalic vein at the level of the elbow is patent. No evidence of deep vein thrombosis at the right jugular, subclavian, axillary, brachial and basilic veins. IMPRESSION: Findings consistent with cephalic vein thrombosis at the level of the wrist and forearm. Otherwise no evidence of deep vein thrombosis at the right upper extremity.
[2017-07-18] MEDS ORDERED: Enoxaparin 100 mg Syringe SC STA (11:23)
[2017-07-18] MEDS ORDERED: Pneumococcal 23-Valent Vaccine IM ONE (13:08)
[2017-07-18] MEDS ORDERED: Permethrin 1% Kit 59 ML BOTTLE TOP ONE (13:14)
--- NOTE | 2017-07-18 13:22 | RAD ---
PROCEDURE: Right Hand Radiographs. HISTORY: Right hand numbness and swelling COMPARISON: None. FINDINGS: BONES: Normal. No fracture. JOINTS: Normal. No osteoarthritic changes. SOFT TISSUES: Diffuse soft tissue swelling. No visulaized radiopaque/visualized foreign body. OTHER FINDINGS: None. IMPRESSION: Soft tissue swelling without acute articular or osseous abnormality. No preliminary report provided by emergency department personnel.
[2017-07-19 07:44] LABS: HEMATOCRIT 29.5 % (35.0-51.0); MEAN CELL VOLUME 80.9 fl (80.0-94.0); MEAN CORPUSCULAR HEMOGLOBIN 25.7 pg (27.0-31.0); MEAN CORPUSCULAR HGB CONC 31.7 g/dL (33.0-37.0); RED CELL DISTRIBUTION WIDTH 14.7 % (11.5-14.5); WHITE BLOOD COUNT 6.4 K/uL (4.8-10.8)
[2017-07-19 07:53] LABS: BLOOD UREA NITROGEN 14 mg/dl (9-20); CALCIUM 8.9 mg/dL (8.4-10.2); CARBON DIOXIDE 27 mmol/L (22-30); CHLORIDE 103 mmol/L (98-107); GFR AFRICAN-AMERICAN > 60; GLUCOSE,RANDOM 113 mg/dL (75-110); POTASSIUM 3.6 MMOL/L (3.6-5.0); SODIUM 140 mmol/l (132-148)
[2017-07-19 08:40] VITALS: RESP 20
--- NOTE | 2017-07-19 08:53 | CP.PCM.CON ---
History of Present Illness - History of Present Illness History of Present Illness: Psychiatry consult called to evaluate for depression CC: "I'm depressed." HPI: 57yo male represented w hand pain and tingling, associated mild redness and swelling. Patient reports severe depression in the context of feeling lonely (close family members are ) and recently having bed bugs. He reports poor sleep/concentration/energy. He reports intermittent thoughts of suicide w/o plan or intent and denies current SI. He states that his buddhism would stop him from harming himself. Denies hallucinations, paranoia, delusions. He is seeking psychiatric admission for worsening depression. Denies current or recent episodes of kymberly/pressured speech or thoughts. PPHx: History of bipolar depression as per patient. Most recent hospitalization at [facility] in 12/2016 for 21 days (involuntary admission?). Patient has outpatient tx w/ Dr. Swan and Dr. Jacobson. PMHx: HTN, DM, Arenas's palsy SHx: Denies drugs/etoh/cig use. Lives alone. On disability for mental illness. FHx: Denies hx of cancer or mental illness ALL: NKDA MSE: A + O x 3, calm, cooperative, good eye contact, speech normal, thought process- linear/coherent, thought content- no delusions, mood "depressed", affect- depressed, no SI/HI, hallucinations, paranoia. I/J- fair Impression: 57 yo male w/ HTN, DM, Arenas's palsy, Bipolar depression vs MDD, presents with worsening depression and would benefit from inpatient psychiatric admission. -Voluntary psychiatric admission when medically stable -Increase Lexapro to 10 mg PO Daily, Continue Risperdal 2 mg PO HS -No 1:1 indicated at this time. Past Patient History - Infectious Disease Hx of Infectious Diseases: None - Past Medical History & Family History Past Medical History?: Yes - Past Social History Alcohol: None - CARDIAC Hx Hypercholesterolemia: Yes Hx Hypertension: Yes - PULMONARY Hx Tuberculosis: No - NEUROLOGICAL Hx Seizures: No - HEENT Hx HEENT Problems: No - RENAL Hx Chronic Kidney Disease: No - ENDOCRINE/METABOLIC Hx Endocrine Disorders: Yes (DM) Hx Diabetes Mellitus Type 2: Yes - HEMATOLOGICAL/ONCOLOGICAL Hx Anemia: Yes Hx Human Immunodeficiency Virus (HIV): No - INTEGUMENTARY Hx Dermatological Problems: No - MUSCULOSKELETAL/RHEUMATOLOGICAL Hx Musculoskeletal Disorders: No Hx Falls: No - GASTROINTESTINAL Hx Gastrointestinal Disorders: No - GENITOURINARY/GYNECOLOGICAL Hx Sexually Transmitted Disorders: No - PSYCHIATRIC Hx Anxiety: Yes Hx Bipolar Disorder: Yes Hx Depression: Yes - SURGICAL HISTORY Hx Surgeries: No - ANESTHESIA Hx Anesthesia: No Meds Allergies/Adverse Reactions: Allergies Allergy/AdvReac Type Severity Reaction Status Date / Time No Known Allergies Allergy Verified 06/25/16 05:59 - Medications Medications: Current Medications Amlodipine Besylate (Norvasc) 10 mg PO DAILY [facility] Benztropine Mesylate (Cogentin) 1 mg PO HS [facility] Last Admin: 07/18/17 22:30 Dose: 1 mg Cyanocobalamin (Vitamin B12) 500 mcg PO DAILY [facility] Enoxaparin Sodium (Lovenox) 40 mg SC DAILY [facility] PRN Reason: Protocol Escitalopram Oxalate (Lexapro) 5 mg PO DAILY [facility] Ferrous Sulfate (Feosol) 325 mg PO BID [facility] Last Admin: 07/18/17 17:48 Dose: 325 mg Piperacillin Sod/Tazobactam (Sod 2.25 gm/ Sodium Chloride) 100 mls @ 100 mls/ hr IVPB Q8 [facility] Last Admin: 07/19/17 01:09 Dose: 100 mls/hr Pantoprazole Sodium (Protonix Ec Tab) 40 mg PO DAILY [facility] Risperidone (Risperdal Tab) 2 mg PO HS [facility] Last Admin: 07/18/17 22:30 Dose: 2 mg Results - Vital Signs Recent Vital Signs: Last Vital Signs Temp 98.9 F 07/19/17 08:39 Pulse 79 07/19/17 08:39 Resp 20 07/19/17 08:39 BP 164/90 H 07/19/17 08:39 Pulse Ox 95 07/19/17 08:39 - Labs Result Diagrams: 07/19/17 06:00 07/19/17 06:00 Labs: Laboratory Results - last 24 hr 07/18/17 07/19/17 07/19/17 10:00 06:00 06:00 WBC 6.4 RBC 3.65 L Hgb 9.4 L Hct 29.5 L MCV 80.9 MCH 25.7 L MCHC 31.7 L RDW 14.7 H Plt Count 248 Sodium 140 Potassium 3.6 Chloride 103 Carbon Dioxide 27 Anion Gap 14 BUN 14 Creatinine 0.9 Est GFR ( Amer) > 60 Est GFR (Non-Af Amer) > 60 Random Glucose 113 H Calcium 8.9 Stool Occult Blood Negative
[2017-07-19] MEDS ORDERED: CYANOCOBALAMIN 500 MCG TAB PO SCH (09:00)
[2017-07-19] MEDS ORDERED: Enoxaparin 40 mg Syringe SC SCH (09:00)
[2017-07-19] MEDS ORDERED: Pantoprazole 40 mg EC Tab PO SCH (09:00)
[2017-07-19 16:17] VITALS: BP 112/66; PULSE 104; TEMP 98.4; O2SAT 94
--- NOTE | 2017-07-19 17:12 | HP ---
CHIEF COMPLAINT: Pain in right hand. HISTORY OF PRESENT ILLNESS: This is a 57-year-old male, who was recently hospitalized and was treated with IV fluids and was discharged, and two days later, the patient started having pain in the right forearm and hand. So, the patient was sent back to emergency room, after evaluation, the patient was found to have a superficial thrombophlebitis and was admitted for further management. REVIEW OF SYSTEMS: Positive for right hand and forearm pain. Review of systems otherwise is negative for headache, dizziness, syncope, loss of consciousness, chest pain, shortness of breath, nausea, vomiting, diarrhea, constipation or any new joint pain. Review of system of all other organ system is unremarkable. PAST MEDICAL HISTORY: Significant for anemia and hypertension. PAST SURGICAL HISTORY: Unremarkable. PERSONAL HISTORY: The patient is currently nonsmoker, nondrinker, no substance abuse. Homeless. He is in the [facility]. MEDICATIONS: The patient is on medications, which is as per reconciliation sheet. ALLERGIES: THE PATIENT IS NOT ALLERGIC TO ANY MEDICATION. FAMILY HISTORY: Noncontributory. PHYSICAL EXAMINATION: GENERAL: Well-built, well-nourished, overweight 57-year-old male in no acute distress. VITAL SIGNS: Temperature afebrile, pulse 80, respirations 18, blood pressure 140/80. HEENT: Pupils are reacting to light. No JVD, no thyromegaly, no lymphadenopathy, no nystagmus. Normocephalic and atraumatic skull. HEART: S1 and S2 normal and regular. No significant murmur, gallop or rub is heard. LUNGS: Shows good bilateral air exchange. ABDOMEN: Soft, nontender. EXTREMITIES: Right upper extremity shows a palpable cord with mild tenderness, but no distal neurovascular compromise. The patient has some redness. Extremity exam otherwise is unremarkable. No edema. No calf swelling. No tenderness. No acute ischemia. CENTRAL NERVOUS SYSTEM: Essentially unchanged. , there is no sign of any acute gross focal, motor or sensory neurological deficits. DIAGNOSTIC DATA: Available diagnostic data reviewed. ADMITTING IMPRESSION: Overall, cellulitis of right forearm and hand, thrombophlebitis superficial, hypertension and obesity. PLAN: As ordered. Case and plan discussed with the patient. Darius Dumont MD [facility] # [id number]
== END 2017-07-19 20:11 ==
LOC: H.ER 07:03 → H.ERHOLD 09:37 → H.MEDSURG1 12:22
PROVIDERS: ADMIT Internal Medicine; ATTEND Internal Medicine
DX: L03.113 Cellulitis of right upper limb (principal); I80.8 Phlebitis and thrombophlebitis of other sites; G51.0 Bell's palsy; E66.9 Obesity, unspecified; Z68.39 Body mass index [BMI] 39.0-39.9, adult; Z23 Encounter for immunization; Z86.73 Personal history of transient ischemic attack (TIA), and cerebral infarction without residual deficits; F32.9 Major depressive disorder, single episode, unspecified; E11.9 Type 2 diabetes mellitus without complications; I10 Essential (primary) hypertension; E78.00 Pure hypercholesterolemia, unspecified
CPT/HCPCS: 36415; 73130; 80048; 80053; 85025; 85027; 90732; 93971; 96365; 96366; 96372; 99283; G0009; G0328; G0378; J1650; J2543

== ENCOUNTER 2017-07-19 18:23 | Inpatient (IN) | payer MEDICARE, MEDICAID ==
[2017-07-19 20:34] VITALS: BMI 39.5
[2017-07-19] MEDS ORDERED: Magnesium Hydroxide Susp 30 ml UD PO PRN (20:37)
[2017-07-19] MEDS ORDERED: Alum-Mag Hydrox-Simethicone Susp (30 mL) PO PRN (20:37)
--- NOTE | 2017-07-19 23:09 | PCM.BM ---
<Sherrie Lara - Last Filed: 07/19/17 23:06> Treatment Plan Problems - Problems identified on initial assessmt altered sleep pattern Date Initiated: 07/19/17 Time Initiated: 23:07 Assessment reference: NA Status: Active self care deficit Date Initiated: 07/19/17 Time Initiated: 23:08 Assessment reference: NA Status: Active Treatment assets and liabiliti Patient Assests: cooperative, ADL independent, good past tx response Patient Liabilities: poor support system, other (homeless) - Milieu Protocol Maintain good personal hygiene: daily Encourage regular showers, daily Remind patient to perform daily oral care, daily Assist patient to perform ADL's Maintain personal safety: every shift Educate patient to report safety concerns to staff, every shift Monitor environment for contraband/sharps Medication safety: Monitor for expected outcome, potential side effects: daily, Assess barriers to learning: daily, Assess readiness for medication education: every shift Family Contact Family involvement: No known Family/SO Discharge/Continuing Care - Education Needs Education Needs: Patient Medication, Patient Diagnosis/Disease Process, Patient Coping Skills, Patient Anger Management skills, Patient Placement options, Patient Community resources, Patient Activities of Daily Living, Patient Pain, Patient Nutrition, Patient Health Practices/Safety, Patient Personal Hygiene/ Grooming, Patient Aftercare Safety Plan - Discharge Discharge Criteria: Tolerates medication w/o severe side effects, Free of Suicidal thoughts, Normal sleep pattern, Ability to care for self <LivanMicaela - Last Filed: 07/24/17 10:24> Treatment assets and liabiliti Patient Assests: adapts well, cooperative, educated, resourceful, self-reliant, ADL independent, good past tx response Patient Liabilities: live alone, poor support system, other Family Contact Family involvement: No known Family/SO Family contact: Patient declines to allow family contact at present Family contact comment: Patient reports having poor social/family supports secondary to multiple deaths in the family through-out the years. Patient refused to sign consent for anyone but outside providers. - Goals for Treatment Patient goals for treatment: Ptient to be encouraged to attend 4-6 groups to identify at least 2 contributing factors leading to worsening depression, develop affective coping skills and improve insight. Patient to be provided with psychoeducation regarding benefits of compliance with aftrcare to ensure saftey/functioning in the community and reduce risk of future hospitalizations. Patient to show improvements in depression, deny suicidal ideations and show decrease in paranoia. Discharge/Continuing Care - Education Needs Education Needs: Patient Medication, Patient Diagnosis/Disease Process, Patient Coping Skills, Patient Community resources, Patient Aftercare Safety Plan - Discharge Discharge Criteria: Tolerates medication w/o severe side effects, Free of paranoid thoughts, Normal sleep pattern, Ability to care for self
[2017-07-20] MEDS: Amoxicillin-Clav 875-125 mg Tab PO SCH ×3 (08:36→21:11)
[2017-07-20] MEDS: Pantoprazole 40 mg EC Tab PO SCH (08:40)
--- NOTE | 2017-07-20 09:34 | PCM.PSYCH ---
Initial Psychiatric Evaluation - Initial Psychiatric Evaluation Type of Admission: Voluntary Legal Status: Capacity Chief Complaint (in patient's own words): i am depressed Patient's Reaction to Hospitalization: pt says he feels bad History of Present Illness and Precipitating Events: This is a 57 y/o HM wit bi-polar depression transferred from [address] [place] [address] admitted there for cellulitis .He has two psych hospitalizations in the past in [facility] last one was in January for depression, medical history of HTN, Anemia and diabetes, walked in complaining of swelling of R arm and depression in the setting of possible homelessness, "might loss my apartment", nor non payment. Patient came from [place] with parents and one brother however all of them a long time ago and now felt alone by himself, feeling lonely, depressed, and hopeless pt got more depressed recently due to no family and feeling lonely pt is paranoid and delusional that something bad will happen to him and dr linares started him on risperdal 2mg hs and cogentin. Current Medications: Active Medications Generic Name Dose Route Start Last Admin Trade Name Freq PRN Reason Stop Dose Admin Acetaminophen 650 mg 07/19/17 20:37 Tylenol 325mg Tab PO Q4 PRN Pain, moderate (4-7) Al Hydrox/Mg Hydrox/Simethicone 30 ml 07/19/17 20:37 Maalox Plus 30 Ml PO Q4 PRN Dyspepsia Amlodipine Besylate 10 mg 07/20/17 09:00 Norvasc PO DAILY [facility] Amoxicillin/Clavulanate Potassium 1 tab 07/20/17 09:00 Augmentin 875 Mg-125 Mg Tab PO Q12 [facility] Benztropine Mesylate 1 mg 07/19/17 22:00 07/19/17 21:20 Cogentin PO 1 mg HS [facility] Administration Escitalopram Oxalate 5 mg 07/20/17 09:00 07/20/17 08:34 Lexapro PO 5 mg DAILY [facility] Administration Ferrous Sulfate 325 mg 07/20/17 09:00 07/20/17 08:39 Feosol PO 325 mg BID [facility] Administration Lorazepam 2 mg 07/19/17 20:37 Ativan IM Q4 PRN Anxiety/Agitation,Unable PO Lorazepam 1 mg 07/19/17 20:37 Ativan PO Q4 PRN Anxiety/Agitation Magnesium Hydroxide 30 ml 07/19/17 20:37 Milk Of Magnesia PO HS PRN Constipation Pantoprazole Sodium 40 mg 07/20/17 09:00 07/20/17 08:40 Protonix Ec Tab PO 40 mg DAILY [facility] Administration Risperidone 2 mg 07/19/17 22:00 07/19/17 21:20 Risperdal Tab PO 2 mg HS [facility] Administration Past Psychiatric History - Past Psychiatric History At [facility] hospital: [facility] [place] Nature of Treatment: for depression History of Abuse: denies History of ETOH/Drug Use: denies History of Family Illness: denies Pertinent Medical Hx (Current Medical&Sleep Prob, Allergies): Allergies Allergy/AdvReac Type Severity Reaction Status Date / Time No Known Allergies Allergy Verified 06/25/16 05:59 Benztropine [Cogentin] 1 mg PO HS #30 tab 07/15/17 Cyanocobalamin [Vitamin B12 100 mcg Tab] 100 mcg PO DAILY #14 tab 07/15/17 Escitalopram [Lexapro] 5 mg PO DAILY #30 tab 07/15/17 Ferrous Sulfate [Feosol] 325 mg PO BID #30 tab 07/15/17 Pantoprazole [Protonix EC Tab] 40 mg PO DAILY #30 ect 07/15/17 amLODIPine [Norvasc] 10 mg PO DAILY #30 tab 07/15/17 risperiDONE [RisperDAL Tab] 2 mg PO HS #14 tab 07/15/17 Amoxicillin/Clavulanate [Augmentin 875 MG-125 MG] 1 tab PO BID #10 tab 07/19/17 Enoxaparin [Lovenox] 40 mg SC DAILY syr 07/19/17 s/p cellulitis hTN,GERD Review of Systems - Review of Systems All systems: reviewed and no additional remarkable complaints except Mental Status Examination - Affect Affect: Constricted - Reliability in Providing Information Reliability in Providing Information: Poor, due to altered mood DSM 5 DX - DSM 5 DSM 5 Diagnosis: schizoaffective disorder - Recommended/Plan of Treatment Treatment Recommendations and Plan of Treatment: will titrate lexapro to 10 mg daily and titrate risperdal to stabilize the pt and will consider adding trileptal for mood will engage pt in therapy will have medical follow up with hospitalist
--- NOTE | 2017-07-20 15:10 | CON ---
REQUESTED BY: Dr. Butler. The patient is admitted for psychiatric issue. CHIEF COMPLAINT: The patient had verbalized depression while the patient was admitted in medical unit and was observed in psych unit for further management after medical stabilization. REVIEW OF SYSTEMS: At this time, is negative for headache, dizziness, syncope, loss of consciousness, chest pain, shortness of breath, nausea, vomiting, diarrhea, constipation. Review of systems is positive for pain in the hand and thumb related to thrombophlebitis for which the patient was admitted to medical unit which has improved. Review of systems of all other organ system is unremarkable. PAST MEDICAL HISTORY: Significant for hypertension and obesity. SURGICAL HISTORY: Unremarkable. PERSONAL HISTORY: The patient is currently nonsmoker, nondrinker, no substance abuse. He is homeless and lives in [place]. FAMILY HISTORY: Noncontributory. PHYSICAL EXAMINATION GENERAL: Well-built, well-nourished, 57-year-old male, ambulatory, in no acute distress. VITAL SIGNS: Temperature afebrile, pulse 80, respirations 18, blood pressure 150/90. HEENT: Pupils reacting to light. No JVD, no thyromegaly, no lymphadenopathy, no nystagmus. Normocephalic and atraumatic skull. HEART: S1, S2 normal and regular. No significant murmur, gallop or rub is heard. LUNGS: Shows good bilateral air exchange. No rales or rhonchi. ABDOMEN: Soft, nontender. No organomegaly. No bruits. Bowel sounds are plus. EXTREMITIES: No edema. No calf swelling. No tenderness. No acute ischemia. CENTRAL NERVOUS SYSTEM: Essentially unchanged from the patient's initial exam and there is no sign of any acute gross focal, motor or sensory neurological deficits. SKIN: The patient has thrombus vein, cellulitis and thrombophlebitis, seems much improved with antibiotics. No sign of acute distress neurovascular compromise. CONSULTING IMPRESSION: The patient is with hypertension and thrombophlebitis admitted for issues in psychiatric unit. Medically, the patient is stable. Thanks for the consult. We will follow the patient with you. Darius Dumont MD
[2017-07-21] MEDS: Pantoprazole 40 mg EC Tab PO SCH (08:56)
[2017-07-21] MEDS: Amoxicillin-Clav 875-125 mg Tab PO SCH ×2 (08:58→21:22)
[2017-07-21 09:24] LABS: HEMATOCRIT 32.8 % (35.0-51.0); MEAN CELL VOLUME 80.5 fl (80.0-94.0); MEAN CORPUSCULAR HEMOGLOBIN 25.9 pg (27.0-31.0); MEAN CORPUSCULAR HGB CONC 32.2 g/dL (33.0-37.0); RED CELL DISTRIBUTION WIDTH 15.2 % (11.5-14.5); WHITE BLOOD COUNT 6.1 K/uL (4.8-10.8)
[2017-07-21 09:52] LABS: ALB/GLOB RATIO 1.1 (1.0-2.1); ALKALINE PHOSPHATASE 75 U/L (38-126); ALT/SGPT 41 U/L (21-72); AST/SGOT 35 U/L (17-59); BILIRUBIN,TOTAL 0.4 mg/dl (0.2-1.3); BLOOD UREA NITROGEN 12 mg/dl (9-20); CALCIUM 9.4 mg/dL (8.4-10.2); CARBON DIOXIDE 28 mmol/L (22-30); CHLORIDE 101 mmol/L (98-107); GFR AFRICAN-AMERICAN > 60; GLUCOSE,RANDOM 132 mg/dL (75-110); POTASSIUM 3.7 MMOL/L (3.6-5.0); SODIUM 140 mmol/l (132-148); TOTAL PROTEIN 8.3 G/DL (6.3-8.2)
--- NOTE | 2017-07-21 11:57 | PCM.PYCHPN ---
Psychiatric Progress Note - Psychiatric Progress Note Patient seen today, length of contact: pt evaluated Patient Chief Complaint: pt has remained depressed and internally precoccupied and still need further stabilization.pt says 'i want to stay few more days' Problems Identified/Issues Discussed: severe depresion Medication Change: Yes Mental Status Examination - Cognitive Function Orientation: Place, Situation Memory: Intact Association: WNL Fund of Knowledge: WNL - Mood Mood: Depressed - Affect Affect: Constricted - Formal Thought Process Formal Thought Process: Flight of ideas - Suicidal Ideation Suicidal Ideation: No - Homicidal Ideation Homicidal Ideation: No Goal/Treatment Plan - Goal/Treatment Plan Progress Toward Problem(s) and Goals/Treatment Plan: will titrate lexapro to 10 mg daily and titrate risperdal to stabilize the pt and pt agreed to start trileptal 150 mg bid to stabilize the mood will engage pt in therapy will have medical follow up with hospitalist
--- NOTE | 2017-07-21 11:58 | PN ---
DATE: 07/21/2017 SUBJECTIVE: The patient was seen and examined. Interim events noted. Psychiatric followup and intervention noted and appreciated. The patient remains in Psychiatric Unit. The patient feels okay. Denies any specific medical complaints. No chest pain. No shortness of breath and pain is slowly improving. PHYSICAL EXAMINATION: GENERAL: The patient is in no acute distress. VITAL SIGNS: Stable. HEART: S1 and S2 normal, regular. LUNGS: Good bilateral air exchange. ABDOMEN: Soft and nontender. EXTREMITIES: The patient has thrombophlebitis that seems to be slightly better. No edema. No calf swelling or tenderness. No acute ischemia. WRITING MANAGER: Essentially unchanged. DIAGNOSTIC DATA: Available diagnostic data reviewed. IMPRESSION: Overall, the patient's general medical condition is stable. PLAN: As ordered. Case and plan discussed with the patient. Darius Dumont MD
[2017-07-21 17:09] VITALS: O2SAT 99
[2017-07-22] MEDS: Amoxicillin-Clav 875-125 mg Tab PO SCH ×2 (08:55→21:46)
[2017-07-22] MEDS: Pantoprazole 40 mg EC Tab PO SCH (08:55)
--- NOTE | 2017-07-22 10:58 | PCM.PYCHPN ---
Psychiatric Progress Note - Psychiatric Progress Note Patient seen today, length of contact: discussed with team Patient Chief Complaint: i am anxious Problems Identified/Issues Discussed: pt states he did not sleep from between 6-8 days prior to this admission. he states he is paranoid and thinks he will be "demolished" by people outside of the hospital, but is vague about who those people may be. he feels safe here in the hosptial, but is still anxious. Medication Change: Yes Medical Record Reviewed: Yes Mental Status Examination - Cognitive Function Orientation: Place, Situation Memory: Intact Attention: Poor Concentration: Poor Association: WNL Fund of Knowledge: WN Decription of patient's judgement and insights: fair insight - Mood Mood: Depressed, Anxious - Affect Affect: Constricted - Speech Speech: Appropriate - Formal Thought Process Formal Thought Process: Paranoia - Suicidal Ideation Suicidal Ideation: No - Homicidal Ideation Homicidal Ideation: No Goal/Treatment Plan - Goal/Treatment Plan Need for Continued Stay: Remain at risks for inpatient hospitalization, Severe functional impairment Progress Toward Problem(s) and Goals/Treatment Plan: schizoaffective disorder pt is with disorganized thoughts, paranoid and with c/o anxiety and insomnia needs further medication adjustment start depakote at for insomnia Estimated Date of D/C: 07/25/17
--- NOTE | 2017-07-22 22:00 | PN ---
DATE: 07/22/2017 SUBJECTIVE: The patient was seen and examined. Psychiatric followup and intervention noted and appreciated. The patient remains in Psychiatric Unit. The patient feels okay. No specific medical complaints. No chest pain. No shortness of breath. PHYSICAL EXAMINATION: GENERAL: The patient is in no acute distress. VITAL SIGNS: Stable. HEART: S1 and S2 normal and regular. LUNGS: Good bilateral air exchange. ABDOMEN: Soft and nontender. EXTREMITIES: Right hand and forearm thrombophlebitis, is much better. Redness, swelling and tenderness is almost resolved. No edema. No calf swelling. No tenderness. No acute ischemia. CENTRAL NERVOUS SYSTEM: Essentially unchanged. DIAGNOSTIC DATA: Available diagnostic data reviewed. IMPRESSION: Overall, the patient's general medical condition is stable. PLAN: As ordered. Darius Dumont MD
[2017-07-23] MEDS: Amoxicillin-Clav 875-125 mg Tab PO SCH ×2 (08:49→21:06)
[2017-07-23] MEDS: Pantoprazole 40 mg EC Tab PO SCH (08:49)
--- NOTE | 2017-07-23 10:09 | PN ---
DATE: 07/23/2017 SUBJECTIVE: The patient was seen and examined. Interim events noted. The patient remains in Psychiatric Unit. The patient feels okay. No specific complaint of chest pain or shortness of breath. PHYSICAL EXAMINATION: GENERAL: The patient is in no acute distress. VITAL SIGNS: Stable. HEART: S1 and S2 normal and regular. LUNGS: Good bilateral air entry. ABDOMEN: Soft and nontender. EXTREMITIES: No edema. No calf swelling. No tenderness. No acute ischemia. CENTRAL NERVOUS SYSTEM: Essentially unchanged. DIAGNOSTIC DATA: Available diagnostic data reviewed. IMPRESSION: Overall, the patient's general medical condition is stable. PLAN: As ordered. Darius Dumont MD
--- NOTE | 2017-07-23 11:34 | PCM.PYCHPN ---
Psychiatric Progress Note - Psychiatric Progress Note Patient seen today, length of contact: discussed with team Patient Chief Complaint: i am anxious Problems Identified/Issues Discussed: pt reports sleep is still improved. pt denies side effects. focused on asking for ativan. Medication Change: Yes Medical Record Reviewed: Yes Mental Status Examination - Cognitive Function Orientation: Place, Situation Memory: Intact Attention: Poor Concentration: Poor Association: WNL Fund of Knowledge: WNL Decription of patient's judgement and insights: fair insight - Mood Mood: Depressed, Anxious - Affect Affect: Constricted - Speech Speech: Appropriate - Formal Thought Process Formal Thought Process: Paranoia - Suicidal Ideation Suicidal Ideation: No - Homicidal Ideation Homicidal Ideation: No Goal/Treatment Plan - Goal/Treatment Plan Need for Continued Stay: Remain at risks for inpatient hospitalization, Severe functional impairment Progress Toward Problem(s) and Goals/Treatment Plan: schizoaffective disorder pt is with disorganized thoughts, paranoid and with c/o anxiety and insomnia needs further medication adjustment- wiil increase trileptal and dc prn ativan continue doxepin at hs for insomnia Estimated Date of D/C: 07/25/17
[2017-07-24] MEDS: Amoxicillin-Clav 875-125 mg Tab PO SCH ×2 (08:53→21:06)
[2017-07-24] MEDS: Pantoprazole 40 mg EC Tab PO SCH (08:55)
--- NOTE | 2017-07-24 10:01 | PN ---
SUBJECTIVE: The patient was seen and examined. Interim events noted. Consults noted and appreciated. Psychiatric followup and intervention noted and appreciated. The patient remains in Psychiatric Unit. The patient feels okay. Denies any specific medical complaints. PHYSICAL EXAMINATION: GENERAL: The patient is in no acute distress. VITAL SIGNS: The patient's blood pressure still running little high. HEART: S1 and S2 normal and regular. LUNGS: Good bilateral air exchange. ABDOMEN: Soft and nontender. EXTREMITIES: No calf swelling. No tenderness. No acute ischemia. CENTRAL NERVOUS SYSTEM: Essentially unchanged. DIAGNOSTIC DATA: Available diagnostic data reviewed. IMPRESSION: Overall, the patient's general medical condition is stable. We will increase blood pressure medicines. PLAN: As ordered. Case and plan discussed with the patient. Darius Dumont MD
--- NOTE | 2017-07-24 10:04 | PCM.PYCHPN ---
Psychiatric Progress Note - Psychiatric Progress Note Patient seen today, length of contact: discussed with team Patient Chief Complaint: i am paranoid Problems Identified/Issues Discussed: pt reports improved sleep. pt now states that he is paranoid. he appears relaxed around peers and participates in groups. Medication Change: Yes Medical Record Reviewed: Yes Mental Status Examination - Cognitive Function Orientation: Place, Situation Memory: Intact Attention: Poor Concentration: Poor Association: WNL Fund of Knowledge: WNL Decription of patient's judgement and insights: fair insight - Mood Mood: Depressed, Anxious - Affect Affect: Constricted - Speech Speech: Appropriate - Formal Thought Process Formal Thought Process: Paranoia - Suicidal Ideation Suicidal Ideation: No - Homicidal Ideation Homicidal Ideation: No Goal/Treatment Plan - Goal/Treatment Plan Need for Continued Stay: Remain at risks for inpatient hospitalization, Severe functional impairment Progress Toward Problem(s) and Goals/Treatment Plan: schizoaffective disorder pt is with c/o paranoia which will be addressed with increase in risperdal needs further medication adjustment- will continue neurontin continue doxepin at for insomnia Estimated Date of D/C: 07/25/17
[2017-07-25] MEDS: Amoxicillin-Clav 875-125 mg Tab PO SCH (08:59)
[2017-07-25] MEDS: Pantoprazole 40 mg EC Tab PO SCH (08:59)
[2017-07-25 09:10] VITALS: RESP 18
--- NOTE | 2017-07-25 10:33 | PCM.PYCHPN ---
Psychiatric Progress Note - Psychiatric Progress Note Patient seen today, length of contact: discussed with team Patient Chief Complaint: i slept really well Problems Identified/Issues Discussed: pt reports improved sleep. he is attending groups. aware of discharge tomorrow. Medication Change: Yes Medical Record Reviewed: Yes Mental Status Examination - Cognitive Function Orientation: Person, Place, Situation, Time Memory: Intact Attention: WNL Concentration: WNL Association: WNL Fund of Knowledge: WNL Decription of patient's judgement and insights: fair insight - Mood Mood: Anxious - Affect Affect: Constricted - Speech Speech: Appropriate - Formal Thought Process Formal Thought Process: Paranoia - Suicidal Ideation Suicidal Ideation: No - Homicidal Ideation Homicidal Ideation: No Goal/Treatment Plan - Goal/Treatment Plan Need for Continued Stay: Remain at risks for inpatient hospitalization, Severe functional impairment Progress Toward Problem(s) and Goals/Treatment Plan: schizoaffective disorder tolerating the incrsae in risperdal no further medication changes continue doxepin at hs for insomnia Estimated Date of D/C: 07/25/17
--- NOTE | 2017-07-25 13:35 | PN ---
DATE: 07/25/2017 SUBJECTIVE: The patient was seen and examined. Interim events noted. Psychiatry followup and intervention noted and appreciated. The patient remains in psychiatric unit. The patient feels okay. Denies any specific medical complaints, no specific medical history reported by nursing staff. PHYSICAL EXAMINATION: GENERAL: The patient is in no acute distress. VITAL SIGNS: Stable. HEART: S1 and S2 normal and regular. LUNGS: Good bilateral air exchange. ABDOMEN: Soft and nontender. EXTREMITIES: No edema. No calf swelling. No tenderness. No acute ischemia. CENTRAL NERVOUS SYSTEM: Essentially unchanged. DIAGNOSTIC DATA: Available diagnostic data reviewed. ASSESSMENT AND PLAN: Overall, the patient's general medical condition is stable. Blood pressure still remains little high. We will increase dose of lisinopril. Plan as ordered. Case and plan discussed with the patient and nursing staff. Darius Dumont MD
[2017-07-26] MEDS: Pantoprazole 40 mg EC Tab PO SCH (08:36)
[2017-07-26 08:37] VITALS: BP 154/86; PULSE 65
[2017-07-26 09:18] VITALS: TEMP 97
--- NOTE | 2017-07-26 11:01 | PCM.PYCHDC ---
Mental Status Examination - Mental Status Examination Orientation: Person, Place, Situation, Time Memory: Intact Mood: Neutral Affect: Broad Speech: Appropriate Attention: WNL Concentration: WNL Association: WNL Fund of Knowledge: WNL Formal Thought Process: No Impairment Description of patient's judgement and insight: fair insight Psychotic Thoughts and Behaviors: pt denies any suicidal or homicidal thoughts/plans or intent Suicidal Ideation: No Current Homicidal Ideation?: No Discharge Summary - Discharge Note Reason for Hospitalization: reported some suicidal thoughts Psychiatric History (includes Medical, Family, Personal Hx): for depression Consultations:: List each consultation separately and include: 1. Reason for request. 2. Findings. 3. Follow-up Consultations: seen by medical office specialist Summary of Hospital Course include:: 1. Description of specific treatment plan utilized for patients during their course of treatmen. 2. Summarize the time- course for resolution of acute symptoms and/or regressed behaviors. 3. Describe issues identified and worked on during hospitalization. 4. Describe medication utilized. 5. Describe medical problems identified and treated. 6. Reassessment of suicide risk Summary of Hospital Course: admitted to [facility] for safety and observation. met with the treatment team. seen by the medical office specialist. he was started on medications to target his mood/ psychotic symptoms. he tolerated the medications. his mood/anxiety and paranoid thoughts improved. he was denying any suicidal or homicidal thoughts at the time of discharge. - Final Diagnosis (DSM 5) Condition upon Discharge: GOOD DSM 5: schizoaffective disorder Disposition: HOME/ ROUTINE Follow-up Treatment Plan: take medications as prescribed do not use alcohol, tobacco or other illicit substances call 911 if any suicidal or homicidal thoughts see your medical assistant secretary for your ongoing medical needs follow up with aftercare as directed. Prescriptions/Medication Reconciliation: Benztropine [Cogentin] 1 mg PO HS #30 tab Docusate [Colace] 100 mg PO BID #30 cap Doxepin [Sinequan] 10 mg PO HS #15 cap Escitalopram [Lexapro] 10 mg PO DAILY #15 tab OXcarbazepine [Trileptal] 300 mg PO BID #30 tab risperiDONE [RisperDAL Tab] 3 mg PO HS #15 tab - Smoking Cessation Smoking Cessation Medication prescribed: No - Antipsychotic Medications Pt discharged on 2 or more routine antipsychotic medications: No
--- NOTE | 2017-07-26 13:06 | PN ---
DATE: 07/26/2017 SUBJECTIVE: The patient was seen and examined. Interim events noted. Psychiatry follow up and intervention noted and appreciated. The patient is in psychiatric unit. The patient feels okay. Denies any specific medical complaints. No chest pain or shortness of breath. PHYSICAL EXAMINATION GENERAL: The patient is in no acute distress. VITAL SIGNS: Stable. HEART: S1 and S2 normal and regular. LUNGS: Good bilateral air exchange. ABDOMEN: Soft and nontender. EXTREMITIES: No edema. No calf swelling. No tenderness. No acute ischemia. CENTRAL NERVOUS SYSTEM: Essentially unchanged. DIAGNOSTIC DATA: Available diagnostic data reviewed. ASSESSMENT AND PLAN: Overall, the patient's general medical condition is stable. The patient is on possible discharge today. Discharge plans were discussed with the patient. The patient was follow up with primary care physician within one week. If he does not find primary care physician, then also I advised to go to my office within one week for followup. Darius Dumont MD
== END 2017-07-26 12:25 | disposition home or self-care (01) | DRG 885 ==
LOC: H.PSYCH 20:35
PROVIDERS: ADMIT Psychiatry & Neurology Psychiatry; ATTEND Psychiatry & Neurology Psychiatry
PROC: GZHZZZZ Group Psychotherapy (ICD-10-PCS; principal; 2017-07-19)
DX: F25.9 Schizoaffective disorder, unspecified (principal); F32.2 Major depressive disorder, single episode, severe without psychotic features; I80.9 Phlebitis and thrombophlebitis of unspecified site; E11.9 Type 2 diabetes mellitus without complications; I10 Essential (primary) hypertension; G47.00 Insomnia, unspecified; E66.9 Obesity, unspecified; Z68.39 Body mass index [BMI] 39.0-39.9, adult; Z59.0 Homelessness; K21.9 Gastro-esophageal reflux disease without esophagitis

== ENCOUNTER 2018-05-01 17:15 | Inpatient (IN) | payer MEDICARE, OTHER ==
--- NOTE | 2018-05-01 17:56 | ED PDOC ---
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 Patient states hes a really good looking joe and likes to wander the world in his underwear. 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 Patient denies suicidal or homicidal ideations, but states when he was stopped by [employer] he verbalized suicidal ideations due to anger. Past Medical History Reviewed: Historical Data, Nursing Documentation, Vital Signs Vital Signs: Last Vital Signs Temp 98.7 F 05/01/18 17:18 Pulse 89 05/01/18 17:18 Resp 18 05/01/18 17:18 BP 182/136 H 05/01/18 17:18 Pulse Ox 100 05/01/18 17:18 - Medical History PMH: Anemia, Anxiety, Bipolar Disorder, CVA, Depression, Diabetes, HTN, Hypercholesterolemia, Hyperthyroidism Denies: Hepatitis, HIV, Chronic Kidney Disease, Seizures, Sexually Transmitted Disease - Surgical History Surgical History: No Surg Hx - Family History Family History: States: Unknown Family Hx - Immunization History Hx Tetanus Toxoid Vaccination: No Hx Influenza Vaccination: No Hx Pneumococcal Vaccination: No - Home Medications Home Medications: Ambulatory Orders Medication Instructions Recorded Ferrous Sulfate [Feosol] 325 mg PO BID #30 tab 07/15/17 Pantoprazole [Protonix EC Tab] 40 mg PO DAILY #30 ect 07/15/17 amLODIPine [Norvasc] 10 mg PO DAILY #30 tab 07/15/17 Benztropine [Cogentin] 1 mg PO HS #30 tab 07/26/17 Docusate [Colace] 100 mg PO BID #30 cap 07/26/17 Doxepin [Sinequan] 10 mg PO HS #15 cap 07/26/17 Escitalopram [Lexapro] 10 mg PO DAILY #15 tab 07/26/17 Lisinopril [Zestril] 40 mg PO DAILY tab 07/26/17 OXcarbazepine [Trileptal] 300 mg PO BID #30 tab 07/26/17 risperiDONE [RisperDAL Tab] 3 mg PO HS #15 tab 07/26/17 - Allergies Allergies/Adverse Reactions: Allergies Allergy/AdvReac Type Severity Reaction Status Date / Time No Known Allergies Allergy Verified 05/01/18 17:18 Review of Systems ROS Statement: Except As Marked, All Systems Reviewed And Found Negative Psych: Negative for: Suicidal ideation Physical Exam - Reviewed Nursing Documentation Reviewed: Yes Vital Signs Reviewed: Yes - Physical Exam Appears: Positive for: Non-toxic, No Acute Distress Head Exam: Positive for: ATRAUMATIC, NORMAL INSPECTION, NORMOCEPHALIC Skin: Positive for: Normal Color, Warm, Dry. Negative for: Rash Eye Exam: Positive for: EOMI, Normal appearance, PERRL Neck: Positive for: Normal, Painless ROM, Supple Cardiovascular/Chest: Positive for: Regular Rate, Rhythm. Negative for: Murmur Respiratory: Positive for: Normal Breath Sounds. Negative for: Respiratory Distress Gastrointestinal/Abdominal: Positive for: Normal Exam, Soft. Negative for: Tenderness Back: Positive for: Normal Inspection. Negative for: L CVA Tenderness, R CVA Tenderness, Vertebral Tenderness Extremity: Positive for: Normal ROM. Negative for: Pedal Edema, Deformity Neurologic/Psych: Positive for: Alert, Oriented - Laboratory Results Result Diagrams: 05/01/18 18:30 05/01/18 18:30 - ECG O2 Sat by Pulse Oximetry: 100 (RA) Pulse Ox Interpretation: Normal Medical Decision Making Medical Decision Makin:50 Plan: --EKG --Alcohol serum --CMP --Drug screen --Crisis eval --CBC --CXR --Ativan 2mg IM --Haldol 5mg IM --1:1 observation --Urinalysis CXR - No cardiopulmonary disease. Repeat BP stable. Discussed BUN and creatinine with Dr. English. 1L NS and repeat labs. Endorsed to APRIL Cunningham at 0000 pending medical clearance for [facility] evaluation. Scribe Attestation: Documented by Amor Webb, acting as a scribe for MANJIT Escamilla MDibelroy Attestation: All medical record entries made by the Scribe were at my direction and personally dictated by me. I have reviewed the chart and agree that the record accurately reflects my personal performance of the history, physical exam, medical decision making, and the department course for this patient. I have also personally directed, reviewed, and agree with the discharge instructions and disposition. Disposition - Clinical Impression Clinical Impression: Evaluation by psychiatric service required, Dehydration - Patient ED Disposition Is Patient to be Admitted: Transfer of Care - Disposition Disposition: Transfer of Care Disposition Time: 00:18 Condition: STABLE Forms: [employer] ([place])
[2018-05-01 18:52] LABS: BASO % 0.3 % (0.0-2.0); EOS % 0.1 % (0.0-4.0); HEMOGLOBIN 12.9 g/dL (12.0-18.0); LYMPH # 1.2 K/uL (1.0-4.3); LYMPH % 9.7 % (20.0-40.0); MEAN CELL VOLUME 84.2 fl (80.0-94.0); MEAN CORPUSCULAR HEMOGLOBIN 27.2 pg (27.0-31.0); MEAN CORPUSCULAR HGB CONC 32.3 g/dL (33.0-37.0); MEAN PLATELET VOLUME 9.8 fl (7.2-11.7); MONO # 1.1 K/uL (0.0-0.8); MONO % 8.9 % (0.0-10.0); NEUT # 9.9 K/uL (1.8-7.0); PLATELET COUNT 238 K/uL (130-400); RBC 4.74 Mil/uL (4.40-5.90); WHITE BLOOD COUNT 12.2 K/uL (4.8-10.8)
[2018-05-01 19:06] LABS: ALB/GLOB RATIO 1.2 (1.0-2.1); ALBUMIN 4.3 g/dL (3.5-5.0); ALT/SGPT 62 U/L (21-72); AST/SGOT 122 U/L (17-59); BLOOD UREA NITROGEN 60 mg/dl (9-20); CALCIUM 8.9 mg/dL (8.4-10.2); GFR AFRICAN-AMERICAN 39; GFR NON-AFRICAN AMERICAN 32
[2018-05-01 19:08] LABS: BARBITURATES, UR NEGATIVE (NEGATIVE); BENZODIAZEPINES, UR NEGATIVE (NEGATIVE); OPIATES, UR NEGATIVE (NEGATIVE); PHENCYCLIDINE, UR NEGATIVE (NEGATIVE)
[2018-05-01 19:12] LABS: SQUAMOUS EPITHIAL 1 /hpf (0-5); URINE BILIRUBIN NEGATIVE (NEGATIVE); URINE BLOOD NEGATIVE (NEGATIVE); URINE CLARITY CLOUDY (Clear); URINE COLOR AMBER (YELLOW); URINE GLUCOSE (UA) NEG (Normal); URINE HYALINE CAST >20 /hpf (0-2); URINE LEUKOCYTE ESTERASE NEG Leu/uL (Negative); URINE PROTEIN 30 mg/dL (NEGATIVE)
[2018-05-01] MEDS ORDERED: Sodium Chloride 0.9% 1,000 ML IV STA (20:41)
[2018-05-01 21:21] LABS: BANDS 5 % (0-2); BASOPHIL 1 % (0-2); LYMPHOCYTE 13 % (20-50); MONOCYTE 6 % (0-10); NEUTROPHIL 75 % (42-75); TOTAL CELLS COUNTED 100
[2018-05-01 21:22] LABS: ANISOCYTOSIS SLIGHT; MICROCYTOSIS SLIGHT; PLATELET ESTIMATE NORMAL (NORMAL)
[2018-05-01 21:23] LABS: HYPOCHROMIC SLIGHT
--- NOTE | 2018-05-02 00:08 | ED PDOC ---
- Laboratory Results Result Diagrams: 05/02/18 02:50 05/02/18 02:50 - ECG O2 Sat by Pulse Oximetry: 100 (RA) Pulse Ox Interpretation: Normal <Stephanie Cunningham - Last Filed: 05/02/18 04:56> - Laboratory Results Result Diagrams: 05/02/18 02:50 05/02/18 02:50 <Nirav English - Last Filed: 05/02/18 06:31> Medical Decision Making <Stephanie Cunningham - Last Filed: 05/02/18 04:56> <Nirav English - Last Filed: 05/02/18 06:31> Medical Decision Making: Case was signed out to telegraphic typewriter operator chief pending [facility] screen. 12:15 am: patient became more agitated, security was called to bedside, patient was able to be redirected back to stretcher, 2 mg IM Ativan administered. 1:52 am - BP now 140/64. Repeat CMP and CBC ordered. 2:30 am: repeat labs wnl. Patient is medically stable for [facility] evaluation. 4:00 am: [facility] screener at bedside, states patient meets requirements for commitment. Patient will remain under one-to-one observation until bed is available for transfer to [facility]. 4:50 am: Patient is getting increasingly agitated, threatening to leave, he was medicated with 2 mg IM Ativan and 5 mg IM Haldol. 6:00 am: Care of patient continued by Dr. English. He is pending bed at [facility]. ( Stephanie Cunningham) [phone] Patient signed out to Dr. Wilkerson pending bed availability at [facility]. Patient now resting s/p ativan and haldol. (Nirav English) Disposition - POA Present On Arrival: None - Disposition Disposition: Other Institution (pending transfer to [facility]) Disposition Time: 06:00 <EliseowandaStephanie - Last Filed: 05/02/18 04:56> - POA Present On Arrival: None - Disposition Disposition: Transfer of Care Patient Signed Over To: Diana Wilkerson Handoff Comments: pending bed availability at [facility] <Nirav English - Last Filed: 05/02/18 06:31> - Clinical Impression Clinical Impression: Schizoaffective disorder - Disposition Condition: FAIR Forms: [employer] (Lithuanian)
[2018-05-02 03:08] LABS: BASO # 0.1 K/uL (0.0-0.2); EOS # 0.2 K/uL (0.0-0.7); HEMOGLOBIN 11.5 g/dL (12.0-18.0); LYMPH # 1.6 K/uL (1.0-4.3); LYMPH % 15.8 % (20.0-40.0); MEAN CELL VOLUME 83.9 fl (80.0-94.0); MEAN CORPUSCULAR HEMOGLOBIN 27.7 pg (27.0-31.0); MONO # 1.1 K/uL (0.0-0.8); MONO % 10.9 % (0.0-10.0); NEUT % 70.3 % (50.0-75.0); RBC 4.16 Mil/uL (4.40-5.90)
[2018-05-02 03:23] LABS: ALB/GLOB RATIO 1.1 (1.0-2.1); ALBUMIN 3.5 g/dL (3.5-5.0); ALT/SGPT 50 U/L (21-72); AST/SGOT 122 U/L (17-59); BLOOD UREA NITROGEN 47 mg/dl (9-20); GFR AFRICAN-AMERICAN > 60; GFR NON-AFRICAN AMERICAN 57
[2018-05-02] MEDS ORDERED: Potassium Chloride 20 mEq ER Tab PO STA (05:06)
[2018-05-02] MEDS ORDERED: Potassium Chloride 20 mEq ER Tab PO ONE (05:07)
--- NOTE | 2018-05-02 09:05 | RAD ---
HISTORY: [facility] COMPARISON: Chest radiograph dated 07/12/2017. FINDINGS: LUNGS: No active pulmonary disease. PLEURA: No significant pleural effusion identified, no pneumothorax apparent. CARDIOVASCULAR: Cardiomediastinal silhouette stably enlarged. OSSEOUS STRUCTURES: Unchanged. VISUALIZED UPPER ABDOMEN: Normal. OTHER FINDINGS: None. IMPRESSION: No active disease.
--- NOTE | 2018-05-02 10:26 | CARD ---
APPROVED REPORT EKG Measurement Heart [id number] <Conclusion> Normal sinus rhythm Possible Left atrial enlargement Left axis deviation Left ventricular hypertrophy Prolonged QT Abnormal ECG
--- NOTE | 2018-05-02 15:55 | CP.PCM.CON ---
History of Present Illness - History of Present Illness History of Present Illness: pt is 57 ys old male with unknown previous psychiatric diagnosis, pt brought to Er by police after being found almost naked on the street and exhibiting disorganized behavior, pt presenting in ER with pressured speech labile affect, delusional thought process , believing police is after him , pt is floridly psychotic , refusing admission to psychiatry and refusing medications Past Patient History - Infectious Disease Hx of Infectious Diseases: None - Past Medical History & Family History Past Medical History?: Yes - Past Social History Smoking Status: Never Smoked - CARDIAC Hx Hypercholesterolemia: Yes Hx Hypertension: Yes - PULMONARY Hx Tuberculosis: No - NEUROLOGICAL Hx Seizures: No - HEENT Hx HEENT Problems: No - RENAL Hx Chronic Kidney Disease: No - ENDOCRINE/METABOLIC Hx Hyperthyroidism: Yes - HEMATOLOGICAL/ONCOLOGICAL Hx Anemia: Yes Hx Human Immunodeficiency Virus (HIV): No - INTEGUMENTARY Hx Dermatological Problems: No - MUSCULOSKELETAL/RHEUMATOLOGICAL Hx Musculoskeletal Disorders: No Hx Falls: No - GASTROINTESTINAL Hx Gastrointestinal Disorders: Yes Hx Gastroesophageal Reflux: Yes - GENITOURINARY/GYNECOLOGICAL Hx Sexually Transmitted Disorders: No - PSYCHIATRIC Hx Anxiety: Yes Hx Bipolar Disorder: Yes Hx Depression: Yes - SURGICAL HISTORY Hx Surgeries: No - ANESTHESIA Hx Anesthesia: No Meds Allergies/Adverse Reactions: Allergies Allergy/AdvReac Type Severity Reaction Status Date / Time No Known Allergies Allergy Verified 05/01/18 17:18 Physical Exam - Psychiatric Exam Additional comments: pt seen dressed in hospital gown , uncooperative, loud pressured speech, paranoid , , internally preoccupied , labile mood and affect, poor insight and judgment , alert awakeoriented to person and palace Results - Vital Signs Recent Vital Signs: Last Vital Signs Temp 98.2 F 05/02/18 05:10 Pulse 90 05/02/18 05:10 Resp 15 05/02/18 05:10 BP 136/72 05/02/18 05:10 Pulse Ox 98 05/02/18 05:10 - Labs Result Diagrams: 05/02/18 02:50 05/02/18 02:50 Labs: Laboratory Results - last 24 hr 05/01/18 05/01/18 05/01/18 18:30 18:30 18:30 WBC 12.2 H D RBC 4.74 Hgb 12.9 D Hct 39.9 MCV 84.2 D MCH 27.2 MCHC 32.3 L RDW 14.0 Plt Count 238 MPV 9.8 Neut % (Auto) 81.0 H Lymph % (Auto) 9.7 L Howell % (Auto) 8.9 Eos % (Auto) 0.1 Baso % (Auto) 0.3 Neut # (Auto) 9.9 H Lymph # (Auto) 1.2 Howell # (Auto) 1.1 H Eos # (Auto) 0.0 Baso # (Auto) 0.0 Neutrophils % (Manual) 75 Band Neutrophils % 5 H Lymphocytes % (Manual) 13 L Monocytes % (Manual) 6 Basophils % (Manual) 1 Platelet Estimate Normal RBC Morphology Normal Hypochromasia (manual) Slight Anisocytosis (manual) Slight Microcytosis (manual) Slight Sodium 144 Potassium 3.8 Chloride 102 Carbon Dioxide 20 L Anion Gap 26 H BUN 60 H Creatinine 2.1 H Est GFR ( Amer) 39 Est GFR (Non-Af Amer) 32 Random Glucose 103 Calcium 8.9 Total Bilirubin 1.3 AST 122 H ALT 62 Alkaline Phosphatase 95 Total Protein 7.8 Albumin 4.3 Globulin 3.5 Albumin/Globulin Ratio 1.2 Urine Color Urine Clarity Urine pH Ur Specific [place] Urine Protein Urine Glucose (UA) Urine Ketones Urine Blood Urine Nitrate Urine Bilirubin Urine Urobilinogen Ur Leukocyte Esterase Urine RBC (Auto) Urine Microscopic WBC Ur Squamous Epith Cells Hyaline Casts Urine Opiates Screen Negative Urine Methadone Screen Negative Ur Barbiturates Screen Negative Ur Phencyclidine Scrn Negative Ur Amphetamines Screen Negative U Benzodiazepines Scrn Negative U Oth Cocaine Metabols Negative U Cannabinoids Screen Negative Alcohol, Quantitative < 10 05/01/18 05/02/18 05/02/18 18:30 02:50 02:50 WBC 10.0 RBC 4.16 L Hgb 11.5 L Hct 34.9 L MCV 83.9 MCH 27.7 MCHC 33.0 RDW 14.0 Plt Count 192 MPV 9.0 Neut % (Auto) 70.3 Lymph % (Auto) 15.8 L Howell % (Auto) 10.9 H Eos % (Auto) 2.0 Baso % (Auto) 1.0 Neut # (Auto) 7.0 Lymph # (Auto) 1.6 Howell # (Auto) 1.1 H Eos # (Auto) 0.2 Baso # (Auto) 0.1 Neutrophils % (Manual) Band Neutrophils % Lymphocytes % (Manual) Monocytes % (Manual) Basophils % (Manual) Platelet Estimate RBC Morphology Hypochromasia (manual) Anisocytosis (manual) Microcytosis (manual) Sodium 142 Potassium 3.3 L Chloride 104 Carbon Dioxide 27 Anion Gap 14 BUN 47 H Creatinine 1.3 Est GFR ( Amer) > 60 Est GFR (Non-Af Amer) 57 Random Glucose 98 Calcium 8.0 L Total Bilirubin 0.9 AST 122 H ALT 50 Alkaline Phosphatase 67 Total Protein 6.6 Albumin 3.5 Globulin 3.2 Albumin/Globulin Ratio 1.1 Urine Color Bonnie Urine Clarity Cloudy Urine pH 5.0 Ur Specific [place] 1.028 Urine Protein 30 Urine Glucose (UA) Neg Urine Ketones 20 Urine Blood Negative Urine Nitrate Negative Urine Bilirubin Negative Urine Urobilinogen 2.0 Ur Leukocyte Esterase Neg Urine RBC (Auto) 4 H Urine Microscopic WBC 2 Ur Squamous Epith Cells 1 Hyaline Casts >20 H Urine Opiates Screen Urine Methadone Screen Ur Barbiturates Screen Ur Phencyclidine Scrn Ur Amphetamines Screen U Benzodiazepines Scrn U Oth Cocaine Metabols U Cannabinoids Screen Alcohol, Quantitative Assessment & Plan - Assessment and Plan (Free Text) Assessment: psychotic disorder rule our bipolar disorder Plan: pt is floridly psychotic , refusing voluntary admission, will be referred to be screened for involuntary admission at [facility] for medication stabilization
--- NOTE | 2018-05-02 17:51 | ED PDOC ---
- Laboratory Results Result Diagrams: 05/02/18 02:50 05/02/18 02:50 - ECG O2 Sat by Pulse Oximetry: 98 Medical Decision Making Medical Decision Making: patient was left by Dr. Wilkerson. Patient is pending [facility] evaluation. He has been intermittently agitated. Remains 1:1. He became acutely agitated around 4:30 pm. [facility] asked for additional work up, including EKG, Chest x-ray and vitals. Per [facility], cardiology consult is requested. d/w Dr. Whiting, give MgSo4 2mg IV and repeat EKG. If normal then no issue. If persistent, he will see patient in morning. Disposition - Clinical Impression Clinical Impression: Schizoaffective disorder - POA Present On Arrival: None - Disposition Disposition: Transfer of Care Disposition Time: 19:20 Condition: FAIR Forms: [employer] (Turkish) Patient Signed Over To: Nirav English
[2018-05-02] MEDS ORDERED: Magnesium Sulfate 2 gm/50 ml 2 GM/50 ML BAG ONE (19:52)
[2018-05-02] MEDS ORDERED: Magnesium Sulfate 2 gm/50 ml 2 GM/50 ML BAG IVPB ONE (20:00)
[2018-05-02] MEDS ORDERED: Midazolam 2 MG/2 ML VIAL IM ONE (23:19)
--- NOTE | 2018-05-03 03:36 | ED PDOC ---
- Laboratory Results Result Diagrams: 05/02/18 02:50 05/02/18 02:50 - ECG O2 Sat by Pulse Oximetry: 98 Pulse Ox Interpretation: Normal Medical Decision Making Medical Decision MakinPM Patient endorsed by me by Dr. Armstrong pending repeat EKG and troponin. 12AM Patient required versed IM because of agitation, attempting to get out of bed, patient harm to himself. 2AM Patient not sedated adequately with versed IM, still trying to get out of room, remains a danger to himself. 2mg of ativan IV given. 3AM Repeat EKG shows normal Qtc of 481 and negative troponin. Patient is now medically cleared for [facility] admission. Patient resting quietly. 5:15AM Patient again is uncooperative, attempting to leave his room, is not redirectable. Will give another 2mg IV of ativan. 7AM Patient asleep. Pending acceptance by [facility] at this time, will endorse to Dr. Wilkerson. Disposition - Clinical Impression Clinical Impression: Schizoaffective disorder - POA Present On Arrival: None - Disposition Disposition: Transfer of Care Disposition Time: 07:00 Condition: FAIR Forms: [employer] (Arabic) Patient Signed Over To: Diana Wilkerson Handoff Comments: pending [facility] acceptance
--- NOTE | 2018-05-03 07:08 | ED PDOC ---
- Laboratory Results Result Diagrams: 05/02/18 02:50 05/02/18 02:50 - ECG O2 Sat by Pulse Oximetry: 98 Medical Decision Making Medical Decision Makin:30 Pt became agitated, trying to elope, Haldol and Ativan administered. Disposition - Clinical Impression Clinical Impression: Schizoaffective disorder - POA Present On Arrival: None - Disposition Disposition: Transfer of Care Disposition Time: 15:00 Condition: STABLE Forms: [employer] (Syriac) Addendum Addendum: 07:[address] Pt signed out [address] English pending [place] [facility]
[2018-05-03 16:30] VITALS: RESP 18
--- NOTE | 2018-05-03 16:36 | CARD ---
APPROVED REPORT EKG Measurement Heart [id number] [place] 174P54 [id number] <Conclusion> Normal sinus rhythm Possible Left atrial enlargement Left axis deviation Left ventricular hypertrophy Prolonged QT Abnormal ECG
--- NOTE | 2018-05-03 16:40 | CARD ---
APPROVED REPORT EKG Measurement Heart [id number] [place] 176P55 [id number] <Conclusion> Sinus rhythm with fusion complexes Left axis deviation Left ventricular hypertrophy with QRS widening Abnormal ECG
--- NOTE | 2018-05-03 16:41 | CARD ---
APPROVED REPORT EKG Measurement Heart [id number] [place] 168P49 [id number] <Conclusion> Normal sinus rhythm Left axis deviation Minimal voltage criteria for LVH, may be normal variant Prolonged QT Abnormal ECG
--- NOTE | 2018-05-03 16:43 | CARD ---
APPROVED REPORT EKG Measurement Heart [id number] CT 172P43 [id number] <Conclusion> Normal sinus rhythm Possible Left atrial enlargement Left axis deviation Left ventricular hypertrophy Prolonged QT Abnormal ECG
[2018-05-03] MEDS: Insulin Regular 100 units/ml SC SCH (22:00)
--- NOTE | 2018-05-03 22:31 | CP.PCM.CON ---
History of Present Illness - History of Present Illness History of Present Illness: ASKED TO SEE PT FOR PROLONGED QTC. PT HAD A MILDLY PROLONGED QTC IN ER WHILE GETTING HALDOL. PT DENIES CP, PALP, LH, DIZZINESS, OR FAM HX OF SCD. PTS QTC TODAY = 498MS. NO ARRYTHMIAS ON TELE. Review of Systems - Review of Systems Systems not reviewed;Unavailable: Altered Mental Status, Uncooperative, Psychotic Past Patient History - Infectious Disease Hx of Infectious Diseases: None - Past Medical History & Family History Past Medical History?: Yes - Past Social History Smoking Status: Never Smoked - CARDIAC Hx Cardiac Disorders: Yes Hx Hypertension: Yes - PULMONARY Hx Respiratory Disorders: No - NEUROLOGICAL Hx Seizures: No Other/Comment: kaufman's palsy - HEENT Hx HEENT Problems: No - RENAL Hx Chronic Kidney Disease: No - ENDOCRINE/METABOLIC Hx Endocrine Disorders: Yes - HEMATOLOGICAL/ONCOLOGICAL Hx Blood Disorders: No - INTEGUMENTARY Hx Dermatological Problems: No - MUSCULOSKELETAL/RHEUMATOLOGICAL Hx Falls: No - GASTROINTESTINAL Hx Gastrointestinal Disorders: Yes Hx Gastroesophageal Reflux: Yes - GENITOURINARY/GYNECOLOGICAL Hx Genitourinary Disorders: No - PSYCHIATRIC Hx Anxiety: Yes Hx Bipolar Disorder: Yes Hx Depression: Yes Hx Substance Use: No - SURGICAL HISTORY Hx Surgeries: No - ANESTHESIA Hx Anesthesia: No Meds Allergies/Adverse Reactions: Allergies Allergy/AdvReac Type Severity Reaction Status Date / Time No Known Allergies Allergy Verified 05/01/18 17:18 - Medications Medications: Current Medications Amlodipine Besylate (Norvasc) 10 mg PO DAILY [facility] Last Admin: 05/03/18 19:48 Dose: 10 mg Insulin Human Regular (Humulin R) 0 units SC ACCU-CHECK [facility] PRN Reason: Protocol Last Admin: 05/03/18 22:00 Dose: Not Given Lorazepam (Ativan) 2 mg IV Q6H PRN PRN Reason: Agitation Last Admin: 05/03/18 19:55 Dose: 2 mg Oxcarbazepine (Trileptal) 300 mg PO BID [facility] Last Admin: 05/03/18 19:47 Dose: 300 mg Physical Exam - Constitutional Appears: Confused - Head Exam Head Exam: ATRAUMATIC, NORMAL INSPECTION, NORMOCEPHALIC - Eye Exam Eye Exam: EOMI, Normal appearance, PERRL Pupil Exam: NORMAL ACCOMODATION, PERRL - ENT Exam ENT Exam: Mucous Membranes Dry, Normal Exam - Neck Exam Neck exam: Positive for: Normal Inspection - Respiratory Exam Respiratory Exam: Clear to Auscultation Bilateral, NORMAL BREATHING PATTERN - Cardiovascular Exam Cardiovascular Exam: REGULAR RHYTHM, +S1, +S2, Systolic Murmur - GI/Abdominal Exam GI & Abdominal Exam: Normal Bowel Sounds, Soft. absent: Bruit, Diminished Bowel Sounds, Distended, Firm, Guarding, Hernia, Hyperactive Bowel Sounds, Hypoactive Bowel Sounds, Mass, Organomegaly, Pulsatile Mass, Rebound, Rigid, Tenderness - Rectal Exam Rectal Exam: Deferred - Extremities Exam Extremities exam: Positive for: normal inspection - Back Exam Back exam: NORMAL INSPECTION - Neurological Exam Neurological exam: Alert, CN II-XII Intact, Normal Gait, Oriented x3, Reflexes Normal - Psychiatric Exam Psychiatric exam: Manic - Skin Skin Exam: Dry, Intact, Normal Color, Warm Results - Vital Signs Recent Vital Signs: Last Vital Signs Temp 98.9 F 05/03/18 20:49 Pulse 103 H 05/03/18 20:49 Resp 18 05/03/18 20:49 BP 168/92 H 05/03/18 20:49 Pulse Ox 98 05/03/18 20:49 - Labs Result Diagrams: 05/02/18 02:50 05/02/18 02:50 Labs: Laboratory Results - last 24 hr 05/03/18 05/03/18 00:08 21:43 POC Glucose (mg/dL) 100 Troponin I 0.0240 - EKG Data EKG Interpreted by: Myself EKG shows normal: Sinus rhythm, QRS complexes Rate: Normal Assessment & Plan (1) Long QT interval Status: Acute (2) Schizoaffective disorder Status: Acute (3) Bipolar disorder Status: Acute (4) Paranoid schizophrenia Status: Acute (5) Diabetes mellitus type 2 in obese Status: Chronic (6) Hypertension Status: Chronic - Assessment and Plan (Free Text) Plan: PT IS STABLE FOR TRANSFER TO PSYCH UNIT. WOULD AVOID MEDICATIONS WHICH PROLONG QT. MONITOR MAG AND KCL LEVELS. WILL SIGN OFF. PLEASE RECALL IF NEEDED.
[2018-05-03] MEDS ORDERED: Potassium Chloride 20 mEq/15 ml LIQ UD PO ONE (23:31)
[2018-05-04] MEDS: Insulin Regular 100 units/ml SC SCH ×3 (08:49→16:10)
--- NOTE | 2018-05-04 15:24 | CP.PCM.CON ---
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 and accepted for involuntary admission.pt has remained paranoid and delusional and in need of psych admission. Past Patient History - Infectious Disease Hx of Infectious Diseases: None - Past Medical History & Family History Past Medical History?: Yes - Past Social History Smoking Status: Never Smoked - CARDIAC Hx Cardiac Disorders: Yes Hx Hypertension: Yes - PULMONARY Hx Respiratory Disorders: No - NEUROLOGICAL Hx Seizures: No Other/Comment: kaufman's palsy - HEENT Hx HEENT Problems: No - RENAL Hx Chronic Kidney Disease: No - ENDOCRINE/METABOLIC Hx Endocrine Disorders: Yes - HEMATOLOGICAL/ONCOLOGICAL Hx Blood Disorders: No - INTEGUMENTARY Hx Dermatological Problems: No - MUSCULOSKELETAL/RHEUMATOLOGICAL Hx Falls: No - GASTROINTESTINAL Hx Gastrointestinal Disorders: Yes Hx Gastroesophageal Reflux: Yes - GENITOURINARY/GYNECOLOGICAL Hx Genitourinary Disorders: No - PSYCHIATRIC Hx Anxiety: Yes Hx Bipolar Disorder: Yes Hx Depression: Yes Hx Substance Use: No - SURGICAL HISTORY Hx Surgeries: No - ANESTHESIA Hx Anesthesia: No Meds Home Medications: Home Medication List Medication Instructions Recorded Confirmed Type Insulin Human Regular [HumuLIN R] 0 units SC ACCU-CHECK ml 05/04/18 Rx LORazepam [Ativan] 2 mg IV Q6H PRN vial 05/04/18 Rx Valsartan [Diovan] 160 mg PO DAILY tab 05/04/18 Rx Allergies/Adverse Reactions: Allergies Allergy/AdvReac Type Severity Reaction Status Date / Time No Known Allergies Allergy Verified 05/01/18 17:18 - Medications Medications: Current Medications Amlodipine Besylate (Norvasc) 10 mg PO DAILY [facility] Last Admin: 05/04/18 08:48 Dose: 10 mg Insulin Human Regular (Humulin R) 0 units SC ACCU-CHECK [facility] PRN Reason: Protocol Last Admin: 05/04/18 12:48 Dose: Not Given Lorazepam (Ativan) 2 mg IV Q6H PRN PRN Reason: Agitation Last Admin: 05/04/18 04:27 Dose: 2 mg Oxcarbazepine (Trileptal) 300 mg PO BID [facility] Last Admin: 05/04/18 08:47 Dose: 300 mg Valsartan (Diovan) 160 mg PO DAILY [facility] Last Admin: 05/04/18 12:48 Dose: 160 mg Physical Exam - Psychiatric Exam Psychiatric exam: Agitated, Flat Affect Additional comments: pt is alert,oriented with intact cognition .pt is paranoid and delusional and with poor insight and poor judgement .pt minimises his illness and high risk to self and others,. Results - Vital Signs Recent Vital Signs: Last Vital Signs Temp 98.4 F 05/04/18 12:24 Pulse 87 05/04/18 12:24 Resp 18 05/04/18 12:24 BP 187/107 H 05/04/18 12:24 Pulse Ox 97 05/04/18 12:24 - Labs Result Diagrams: 05/02/18 02:50 05/02/18 02:50 Labs: Laboratory Results - last 24 hr 05/03/18 05/04/18 05/04/18 21:43 05:32 11:19 POC Glucose (mg/dL) 100 97 93 Assessment & Plan - Assessment and Plan (Free Text) Assessment: schizophrenia ,paranoid type Plan: Continue 1:1 observation haldol and ativan prn and resume paych meds pt will be transferred to [facility] for involuntary psych admission when bed available
[2018-05-04 16:40] VITALS: BP 163/99; PULSE 82; TEMP 97.6; O2SAT 93
[2018-05-04] MEDS ORDERED: DiphenhydrAMINE 50 mg/ml Inj IM STA (17:53)
--- NOTE | 2018-05-05 14:22 | CARD ---
APPROVED REPORT EKG Measurement Heart [id number] [place] 170P38 [id number] <Conclusion> Normal sinus rhythm Possible Left atrial enlargement Left anterior fascicular block Left ventricular hypertrophy Prolonged QT Abnormal ECG
--- NOTE | 2018-05-05 14:35 | CARD ---
APPROVED REPORT EKG Measurement Heart [id number] [place] 184P55 [id number] <Conclusion> Normal sinus rhythm Left axis deviation Minimal voltage criteria for LVH, may be normal variant Prolonged QT Abnormal ECG
== END 2018-05-04 18:30 | DRG 309 ==
LOC: H.ER 17:15 → H.ERHOLD 05-03 09:16 → H.TEL 05-03 11:00
PROVIDERS: ADMIT Family Medicine; ATTEND Family Medicine
DX: I45.81 Long QT syndrome (principal); F20.0 Paranoid schizophrenia; E11.9 Type 2 diabetes mellitus without complications; I10 Essential (primary) hypertension; E86.0 Dehydration; Z86.73 Personal history of transient ischemic attack (TIA), and cerebral infarction without residual deficits; E78.00 Pure hypercholesterolemia, unspecified; E66.9 Obesity, unspecified; Z68.35 Body mass index [BMI] 35.0-35.9, adult; Z91.83 Wandering in diseases classified elsewhere

== ENCOUNTER 2019-02-26 16:11 | Emergency (ER) | payer MEDICARE, OTHER ==
--- NOTE | 2019-02-26 16:49 | ED PDOC ---
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 History unobtainable from patient due to his clinical condition. Past Medical History Reviewed: Historical Data, Nursing Documentation, Vital Signs - Medical History PMH: Anemia, Anxiety, Bipolar Disorder, CVA, Depression, Diabetes, HTN, Hyperc holesterolemia, Hyperthyroidism Denies: Hepatitis, HIV, Chronic Kidney Disease, Seizures, Sexually Transmitted Disease - Surgical History Surgical History: No Surg Hx - Family History Family History: States: Unknown Family Hx - Immunization History Hx Tetanus Toxoid Vaccination: No Hx Influenza Vaccination: No Hx Pneumococcal Vaccination: No - Home Medications Home Medications: Ambulatory Orders Medication Instructions Recorded Benztropine [Cogentin] 1 mg PO HS 05/03/18 Doxepin [Sinequan] 10 mg PO HS 05/03/18 Escitalopram [Lexapro] 10 mg PO DAILY 05/03/18 OXcarbazepine [Trileptal] 300 mg PO BID 05/03/18 amLODIPine [Norvasc] 10 mg PO DAILY 05/03/18 Insulin Human Regular [HumuLIN R] 0 units SC ACCU-CHECK ml 05/04/18 LORazepam [Ativan] 2 mg IV Q6H PRN vial 05/04/18 Valsartan [Diovan] 160 mg PO DAILY tab 05/04/18 - Allergies Allergies/Adverse Reactions: Allergies Allergy/AdvReac Type Severity Reaction Status Date / Time No Known Allergies Allergy Verified 02/26/19 16:15 Review of Systems Review Of Systems: ROS cannot be obtained secondary to pt's inabilty to answer questions. (patient psychotic) Physical Exam - Physical Exam Appears: Positive for: In Acute Distress (in acute psychiatric distress) Head Exam: Positive for: ATRAUMATIC, NORMOCEPHALIC Skin: Positive for: Diaphoresis Eye Exam: Positive for: EOMI, PERRL, Conjunctival injection ENT: Positive for: Other (Moist mucus membranes) Neck: Positive for: Painless ROM, Supple Cardiovascular/Chest: Positive for: Tachycardia. Negative for: Murmur Respiratory: Positive for: Normal Breath Sounds. Negative for: Respiratory Distress Gastrointestinal/Abdominal: Positive for: Soft. Negative for: Tenderness Back: Positive for: Normal Inspection. Negative for: Decreased ROM Extremity: Positive for: Normal ROM, Other (chronic appearing lower leg edema with areas of abrasion and dark erythema). Negative for: Deformity Lymphatic: Negative for: Adenopathy Neurological/Psych: Positive for: Awake, Alert, Mood/Affect (angry mood; agitated and angry affect), Facial Droop (left sided), Other (patient with pressured speech, tangential thoughts, and grandiose thinking) Comments: Previous visits reviewed, patient with history of left facial droop due to a prior CVA Patient also has a history of schizophrenia and has had prior admissions for decompensated psychiatric illness. - Laboratory Results Result Diagrams: 02/26/19 17:21 02/26/19 17:21 Medical Decision Making Medical Decision Making: Patient is agitated on arrival with aggressive behavior. Multiple diversion tactics used but with no success. Patient given anti-psychotics to relieve acute psychosis -- Placed on powder nipper Patient also placed in restraints due to concern for safety of patient as well as staff -- 1:1 observation initiated Impression: Acute psychosis, liekly due to decompensated schizophrenia Plan: -- Labs -- Urinalysis -- EKG -- UDS No clinically significant lab abnormalities EKG NSR prolonged QT [address] seg elevation/depression (Pt fully evaluated by Cardiology for prolonged QT on previous visit and was cleared for psych at that time.) 1800 Pt sleeping comfortably. Medically stable for crisis/psych evaluation and admission if necessary. ScribeAttestation: Documented byKailey Mayo, acting as a scribe for Stephanie Vides MD. Provider ScribeAttestation: All medical record entries made by the Scribe were at my direction and personally dictated by me. I have reviewed the chart and agree that the record accurately reflects my personal performance of the history, physical exam, medical decision making, and the department course for this patient. I have also personally directed, reviewed, and agree with the discharge instructions and disposition. Disposition - Clinical Impression Clinical Impression: Psychosis, Paranoid schizophrenia - Disposition Disposition: Transfer of Care Disposition Time: 00:00 Condition: STABLE Forms: [employer] (Dutch) Patient Signed Over To: Nirav English Handoff Comments: Pending Crisis evaluation
[2019-02-26] MEDS ORDERED: DiphenhydrAMINE 50 mg/ml Inj IM STA (17:06)
[2019-02-26] MEDS ORDERED: DiphenhydrAMINE 50 mg/ml Inj ONE (17:09)
[2019-02-26] MEDS ORDERED: Sodium Chloride 0.9% 500 ML IV STA (17:14)
[2019-02-26 17:25] LABS: BASO % 0.6 % (0.0-2.0); EOS # 0.1 K/uL (0.0-0.7); HEMOGLOBIN 11.7 g/dL (12.0-18.0); LYMPH # 0.7 K/uL (1.0-4.3); LYMPH % 8.2 % (20.0-40.0); MEAN CELL VOLUME 81.2 fl (80.0-94.0); MEAN CORPUSCULAR HEMOGLOBIN 24.4 pg (27.0-31.0); MEAN CORPUSCULAR HGB CONC 30.1 g/dL (33.0-37.0); MEAN PLATELET VOLUME 9.4 fl (7.2-11.7); MONO # 0.5 K/uL (0.0-0.8); MONO % 6.2 % (0.0-10.0); NEUT # 6.9 K/uL (1.8-7.0); PLATELET COUNT 207 K/uL (130-400); RBC 4.78 Mil/uL (4.40-5.90); RED CELL DISTRIBUTION WIDTH 17.7 % (11.5-14.5); WHITE BLOOD COUNT 8.3 K/uL (4.8-10.8)
[2019-02-26 17:48] LABS: ALB/GLOB RATIO 1.2 (1.0-2.1); ALBUMIN 4.3 g/dL (3.5-5.0); ALT/SGPT 87 U/L (21-72); AST/SGOT 91 U/L (17-59); BLOOD UREA NITROGEN 28 mg/dl (9-20); CALCIUM 9.3 mg/dL (8.4-10.2); GFR NON-AFRICAN AMERICAN > 60
[2019-02-26 18:47] LABS: BANDS 3 % (0-2); BASOPHIL 1 % (0-2); EOSINOPHIL 1 % (0-7); LYMPHOCYTE 10 % (20-50); MONOCYTE 6 % (0-10); NEUTROPHIL 79 % (42-75); TOTAL CELLS COUNTED 100
[2019-02-26 18:48] LABS: ANISOCYTOSIS SLIGHT; HYPOCHROMIC SLIGHT; MICROCYTOSIS MODERATE; OVALOCYTES SLIGHT; PLATELET ESTIMATE NORMAL (NORMAL); POIKILOCYTOSIS SLIGHT; POLYCHROMIC SLIGHT
--- NOTE | 2019-02-26 20:29 | CARD ---
APPROVED REPORT Date of service: 02/26/2019 EKG Measurement Heart [id number] [place] 176P61 [id number] <Conclusion> Normal sinus rhythm Left atrial enlargement Left axis deviation Left ventricular hypertrophy Prolonged QT Abnormal ECG
[2019-02-26 21:46] LABS: BARBITURATES, UR NEGATIVE (NEGATIVE); BENZODIAZEPINES, UR NEGATIVE (NEGATIVE); OPIATES, UR NEGATIVE (NEGATIVE); PHENCYCLIDINE, UR NEGATIVE (NEGATIVE)
--- NOTE | 2019-02-27 00:16 | ED PDOC ---
- Laboratory Results Result Diagrams: 02/26/19 17:21 02/26/19 17:21 Lab Results: Total Bilirubin 0.5 mg/dl (0.2-1.3) 02/26/19 17:21 AST 91 U/L (17-59) H D 02/26/19 17:21 ALT 87 U/L (21-72) H D 02/26/19 17:21 Alkaline Phosphatase 92 U/L (38-126) 02/26/19 17:21 Total Protein 8.1 G/DL (6.3-8.2) 02/26/19 17:21 Albumin 4.3 g/dL (3.5-5.0) 02/26/19 17:21 Globulin 3.7 gm/dL (2.2-3.9) 02/26/19 17:21 Albumin/Globulin Ratio 1.2 (1.0-2.1) 02/26/19 17:21 - ECG O2 Sat by Pulse Oximetry: 87 (RA) Pulse Ox Interpretation: Normal Medical Decision Making Medical Decision Making: Time: 0000 Patient transferred to pr by Dr. Vides, pending crisis evaluation. 0200 Patient is awake, alert, but not oriented Patient is saying nonsensical things, does not make sense Will get crisis eval 0400 Patient will be evaluated by [facility] Will give Geodon to control patient's elevating agitating and screaming 600 Patient was not sedated at all with Geodon, requiring Haldol IM [address] Reyes pending [facility] eval Scribe Attestation: Documented by Maria Guadalupe Hernandez, acting as a scribe for Nirav English MD. Provider Scribe Attestation: All medical record entries made by the Scribe were at my direction and personally dictated by me. I have reviewed the chart and agree that the record accurately reflects my personal performance of the history, physical exam, medical decision making, and the department course for this patient. I have also personally directed, reviewed, and agree with the discharge instructions and disposition. Disposition - Clinical Impression Clinical Impression: Psychosis, Paranoid schizophrenia - POA Present On Arrival: None - Disposition Disposition: Transfer of Care Disposition Time: 07:00 Condition: STABLE Forms: [employer] (Turkmen) Patient Signed Over To: Amanda Reyes Handoff Comments: pending [facility] jerome
[2019-02-27 07:50] LABS: URINE BILIRUBIN NEGATIVE (NEGATIVE); URINE BLOOD NEGATIVE (NEGATIVE); URINE CLARITY SLIGHTY-CLOUDY (Clear); URINE COLOR YELLOW (YELLOW); URINE GLUCOSE (UA) NEG (NEGATIVE); URINE LEUKOCYTE ESTERASE NEG Leu/uL (Negative); URINE PROTEIN NEGATIVE (NEGATIVE); URINE UROBILINOGEN 0.2-1.0 mg/dL (0.2-1.0)
--- NOTE | 2019-02-27 07:58 | RAD ---
Date of service: 02/26/2019 HISTORY: psychosis COMPARISON: Single frontal portable chest 05/01/2018. TECHNIQUE: 1 view obtained. FINDINGS: LUNGS: Potential patchy airspace disease inferior right lung zone with left chest clear. PLEURA: No significant pleural effusion identified, no pneumothorax apparent. CARDIOVASCULAR: No aortic atherosclerotic calcification present. Cardiomegaly is noted with elevated right hemidiaphragm. Mild pulmonary vascular congestion suspected. OSSEOUS STRUCTURES: No significant abnormalities. VISUALIZED UPPER ABDOMEN: Normal. OTHER FINDINGS: None. IMPRESSION: Mild pulmonary vascular congestion suspected. Limited patchy atelectasis or infiltrate question at the inferior right lung zone with elevated right hemidiaphragm now evident. Cardiomegaly is identified.
--- NOTE | 2019-02-27 08:01 | ED PDOC ---
- Laboratory Results Result Diagrams: 02/26/19 17:21 02/26/19 17:21 Lab Results: Total Bilirubin 0.5 mg/dl (0.2-1.3) 02/26/19 17:21 AST 91 U/L (17-59) H D 02/26/19 17:21 ALT 87 U/L (21-72) H D 02/26/19 17:21 Alkaline Phosphatase 92 U/L (38-126) 02/26/19 17:21 Total Protein 8.1 G/DL (6.3-8.2) 02/26/19 17:21 Albumin 4.3 g/dL (3.5-5.0) 02/26/19 17:21 Globulin 3.7 gm/dL (2.2-3.9) 02/26/19 17:21 Albumin/Globulin Ratio 1.2 (1.0-2.1) 02/26/19 17:21 - ECG O2 Sat by Pulse Oximetry: 96 (RA) Pulse Ox Interpretation: Normal Medical Decision Making Medical Decision Makin:00 Patient signed out to this provider by Dr. English pending [facility] evaluation for possible admission. On evaluation, patient is currently sleeping and on 1:1 observation. U tox is negative for significant findings and he has no acute medical issues. 15:00 Patient medically optimized. Transfer to [facility] for psychiatric admission pending bed placement. Patient signed out to Dr. Vides for further care. Scribe Attestation: Documented by Zee Zuñiga, acting as a scribe Sapna Reyes MD Provider Scribe Attestation: All medical record entries made by the Scribe were at my direction and personally dictated by me. I have reviewed the chart and agree that the record accurately reflects my personal performance of the history, physical exam, medical decision making, and the department course for this patient. I have also personally directed, reviewed, and agree with the discharge instructions and disposition. Disposition - Clinical Impression Clinical Impression: Psychosis, Paranoid schizophrenia - Disposition Disposition: Transfer of Care Condition: STABLE Forms: [employer] (Cameroonian) Patient Signed Over To: Stephanie Vides
--- NOTE | 2019-02-27 11:39 | CP.PCM.CON ---
History of Present Illness - History of Present Illness History of Present Illness: Psychiatry consult note CC: "I'm a ninja" HPI: 58 yo male w/ h/o schizoaffective disorder, presents acutely bizarre, psychotic, delusions that he is a ninja, disorganized, w/ pressured speech and mood lability. He was acutely agitated in the ER. He is currently cooperative with interview, but difficult to understand due to disorganization. He has poor insight/judgment and does not believe he needs to be in the hospital. He has not been PMHx: DM, h/o CVA, HTN, Anemia PPHx: Multiple past psychiatric admissions; not currently compliant with treatment or medications ALL: NKDA MSE: A + O x 3, calm, cooperative, no acute distress, speech slurred, mood "fine", affect- labile, thought process- disorganized, thought content- +various delusions, denies AH/VH/SI/HI, poor I/J Impression: 58 yo male w/ h/o schizoaffective disorder, presents acutely disorganized and psychotic. -Screen for involuntary psychiatric admission Past Patient History - Infectious Disease Hx of Infectious Diseases: None - Past Medical History & Family History Past Medical History?: Yes - Past Social History Smoking Status: Never Smoked - CARDIAC Hx Hypercholesterolemia: Yes Hx Hypertension: Yes - PULMONARY Hx Tuberculosis: No - NEUROLOGICAL Hx Seizures: No - HEENT Hx HEENT Problems: No - RENAL Hx Chronic Kidney Disease: No - ENDOCRINE/METABOLIC Hx Hyperthyroidism: Yes - HEMATOLOGICAL/ONCOLOGICAL Hx Anemia: Yes Hx Human Immunodeficiency Virus (HIV): No - INTEGUMENTARY Hx Dermatological Problems: No - MUSCULOSKELETAL/RHEUMATOLOGICAL Hx Falls: No - GASTROINTESTINAL Hx Gastrointestinal Disorders: Yes Hx Gastroesophageal Reflux: Yes - GENITOURINARY/GYNECOLOGICAL Hx Sexually Transmitted Disorders: No - PSYCHIATRIC Hx Anxiety: Yes Hx Bipolar Disorder: Yes Hx Depression: Yes - SURGICAL HISTORY Hx Surgeries: No - ANESTHESIA Hx Anesthesia: No Meds Allergies/Adverse Reactions: Allergies Allergy/AdvReac Type Severity Reaction Status Date / Time No Known Allergies Allergy Verified 02/26/19 16:15 Results - Vital Signs Recent Vital Signs: Last Vital Signs Temp 99.6 F 02/26/19 16:34 Pulse 90 02/27/19 10:23 Resp 20 02/27/19 10:23 BP 138/61 02/27/19 10:23 Pulse Ox 96 02/27/19 10:23 - Labs Result Diagrams: 02/26/19 17:21 02/26/19 17:21 Labs: Laboratory Results - last 24 hr 02/26/19 02/26/19 02/26/19 16:24 17:21 17:21 WBC 8.3 RBC 4.78 Hgb 11.7 L Hct 38.8 MCV 81.2 D MCH 24.4 L MCHC 30.1 L RDW 17.7 H Plt Count 207 MPV 9.4 Neut % (Auto) 84.0 H Lymph % (Auto) 8.2 L [place] % (Auto) 6.2 Eos % (Auto) 1.0 Baso % (Auto) 0.6 Neut # (Auto) 6.9 Lymph # (Auto) 0.7 L [place] # (Auto) 0.5 Eos # (Auto) 0.1 Baso # (Auto) 0.0 Neutrophils % (Manual) 79 H Band Neutrophils % 3 H Lymphocytes % (Manual) 10 L Monocytes % (Manual) 6 Eosinophils % (Manual) 1 Basophils % (Manual) 1 Platelet Estimate Normal Polychromasia Slight Hypochromasia (manual) Slight Poikilocytosis (manual Slight Anisocytosis (manual) Slight Microcytosis (manual) Moderate Ovalocytes Slight Sodium 141 Potassium 4.1 Chloride 103 Carbon Dioxide 31 H Anion Gap 11 BUN 28 H Creatinine 1.0 Est GFR ( Amer) > 60 Est GFR (Non-Af Amer) > 60 POC Glucose (mg/dL) 129 H Random Glucose 128 H Calcium 9.3 Phosphorus 3.3 Magnesium 2.0 Total Bilirubin 0.5 AST 91 H D ALT 87 H D Alkaline Phosphatase 92 Total Protein 8.1 Albumin 4.3 Globulin 3.7 Albumin/Globulin Ratio 1.2 Urine Color Urine Clarity Urine pH Ur Specific [place] Urine Protein Urine Glucose (UA) Urine Ketones Urine Blood Urine Nitrate Urine Bilirubin Urine Urobilinogen Ur Leukocyte Esterase Urine RBC (Auto) Urine Microscopic WBC Urine Opiates Screen Urine Methadone Screen Ur Barbiturates Screen Ur Phencyclidine Scrn Ur Amphetamines Screen U Benzodiazepines Scrn U Oth Cocaine Metabols U Cannabinoids Screen Alcohol, Quantitative < 10 02/26/19 02/27/19 21:20 06:52 WBC RBC Hgb Hct MCV MCH MCHC RDW Plt Count MPV Neut % (Auto) Lymph % (Auto) [place] % (Auto) Eos % (Auto) Baso % (Auto) Neut # (Auto) Lymph # (Auto) [place] # (Auto) Eos # (Auto) Baso # (Auto) Neutrophils % (Manual) Band Neutrophils % Lymphocytes % (Manual) Monocytes % (Manual) Eosinophils % (Manual) Basophils % (Manual) Platelet Estimate Polychromasia Hypochromasia (manual) Poikilocytosis (manual Anisocytosis (manual) Microcytosis (manual) Ovalocytes Sodium Potassium Chloride Carbon Dioxide Anion Gap BUN Creatinine Est GFR ( Amer) Est GFR (Non-Af Amer) POC Glucose (mg/dL) Random Glucose Calcium Phosphorus Magnesium Total Bilirubin AST ALT Alkaline Phosphatase Total Protein Albumin Globulin Albumin/Globulin Ratio Urine Color Yellow Urine Clarity Slighty-cloudy Urine pH 5.0 Ur Specific [place] 1.020 Urine Protein Negative Urine Glucose (UA) Neg Urine Ketones Trace Urine Blood Negative Urine Nitrate Negative Urine Bilirubin Negative Urine Urobilinogen 0.2-1.0 Ur Leukocyte Esterase Neg Urine RBC (Auto) 3 Urine Microscopic WBC < 1 Urine Opiates Screen Negative Urine Methadone Screen Negative Ur Barbiturates Screen Negative Ur Phencyclidine Scrn Negative Ur Amphetamines Screen Negative U Benzodiazepines Scrn Negative U Oth Cocaine Metabols Negative U Cannabinoids Screen Negative Alcohol, Quantitative
--- NOTE | 2019-02-27 15:51 | ED PDOC ---
- Laboratory Results Result Diagrams: 02/26/19 17:21 02/26/19 17:21 Lab Results: Total Bilirubin 0.5 mg/dl (0.2-1.3) 02/26/19 17:21 AST 91 U/L (17-59) H D 02/26/19 17:21 ALT 87 U/L (21-72) H D 02/26/19 17:21 Alkaline Phosphatase 92 U/L (38-126) 02/26/19 17:21 Total Protein 8.1 G/DL (6.3-8.2) 02/26/19 17:21 Albumin 4.3 g/dL (3.5-5.0) 02/26/19 17:21 Globulin 3.7 gm/dL (2.2-3.9) 02/26/19 17:21 Albumin/Globulin Ratio 1.2 (1.0-2.1) 02/26/19 17:21 Urine Color Yellow (YELLOW) 02/27/19 06:52 Urine Clarity Slighty-cloudy (Clear) 02/27/19 06:52 Urine pH 5.0 (5.0-8.0) 02/27/19 06:52 Ur Specific Logan 1.020 (1.003-1.030) 02/27/19 06:52 Urine Protein Negative mg/dL (NEGATIVE) 02/27/19 06:52 Urine Glucose (UA) Neg mg/dL (NEGATIVE) 02/27/19 06:52 Urine Ketones Trace mg/dL (NEGATIVE) 02/27/19 06:52 Urine Blood Negative (NEGATIVE) 02/27/19 06:52 Urine Nitrate Negative (NEGATIVE) 02/27/19 06:52 Urine Bilirubin Negative (NEGATIVE) 02/27/19 06:52 Urine Urobilinogen 0.2-1.0 mg/dL (0.2-1.0) 02/27/19 06:52 Ur Leukocyte Esterase Neg Cale/uL (Negative) 02/27/19 06:52 Urine RBC (Auto) 3 /hpf (0-3) 02/27/19 06:52 Urine Microscopic WBC < 1 /hpf (0-5) 02/27/19 06:52 - ECG O2 Sat by Pulse Oximetry: 96 (RA) Medical Decision Making Medical Decision Makin:00 Patient signed out to this provider from Dr. Reyes. Patient is sleeping at this time. 18:00 Pt having conversation with sitter. No acute distress. Scribe Attestation: Documented by Pablo Gardner acting as a scribe for Stephanie Vides MD. Provider Scribe Attestation: All medical record entries made by the Scribe were at my direction and p ersonally dictated by me. I have reviewed the chart and agree that the record accurately reflects my personal performance of the history, physical exam, medical decision making, and the department course for this patient. I have also personally directed, reviewed, and agree with the discharge instructions and disposition. Time: 2048 -- Patient evaluated by [facility] and is accepted for psychiatric admission. Patient currently pending bed availability at [facility]. --Pt continues to be medically stable at this time [address] English pending bed availability at [facility] for psych admission. Scribe Attestation: Documented by Henry Masters, acting as a scribe for Stephanie Vides MD. Provider Scribe Attestation: All medical record entries made by the Scribe were at my direction and personally dictated by me. I have reviewed the chart and agree that the record accurately reflects my personal performance of the history, physical exam, medical decision making, and the department course for this patient. I have also personally directed, reviewed, and agree with the discharge instructions and dis position. Disposition - Clinical Impression Clinical Impression: Psychosis, Paranoid schizophrenia - POA Present On Arrival: None - Disposition Disposition: Transfer of Care Disposition Time: 00:00 Condition: STABLE Forms: [employer] (Belarusian)
[2019-02-27 23:54] VITALS: RESP 18
--- NOTE | 2019-02-28 00:11 | ED PDOC ---
- Laboratory Results Result Diagrams: 02/26/19 17:21 02/26/19 17:21 Lab Results: Total Bilirubin 0.5 mg/dl (0.2-1.3) 02/26/19 17:21 AST 91 U/L (17-59) H D 02/26/19 17:21 ALT 87 U/L (21-72) H D 02/26/19 17:21 Alkaline Phosphatase 92 U/L (38-126) 02/26/19 17:21 Total Protein 8.1 G/DL (6.3-8.2) 02/26/19 17:21 Albumin 4.3 g/dL (3.5-5.0) 02/26/19 17:21 Globulin 3.7 gm/dL (2.2-3.9) 02/26/19 17:21 Albumin/Globulin Ratio 1.2 (1.0-2.1) 02/26/19 17:21 Urine Color Yellow (YELLOW) 02/27/19 06:52 Urine Clarity Slighty-cloudy (Clear) 02/27/19 06:52 Urine pH 5.0 (5.0-8.0) 02/27/19 06:52 Ur Specific [place] 1.020 (1.003-1.030) 02/27/19 06:52 Urine Protein Negative mg/dL (NEGATIVE) 02/27/19 06:52 Urine Glucose (UA) Neg mg/dL (NEGATIVE) 02/27/19 06:52 Urine Ketones Trace mg/dL (NEGATIVE) 02/27/19 06:52 Urine Blood Negative (NEGATIVE) 02/27/19 06:52 Urine Nitrate Negative (NEGATIVE) 02/27/19 06:52 Urine Bilirubin Negative (NEGATIVE) 02/27/19 06:52 Urine Urobilinogen 0.2-1.0 mg/dL (0.2-1.0) 02/27/19 06:52 Ur Leukocyte Esterase Neg Cale/uL (Negative) 02/27/19 06:52 Urine RBC (Auto) 3 /hpf (0-3) 02/27/19 06:52 Urine Microscopic WBC < 1 /hpf (0-5) 02/27/19 06:52 - ECG O2 Sat by Pulse Oximetry: 98 (RA) Pulse Ox Interpretation: Normal Medical Decision Making Medical Decision Making: Time: 0000 Patient endorsed to me by Dr. Vides, pending [facility] bed. Time: 0200 Patient resting comfortably, calm. Time: 0400 EMS arrived to transfer patient to [facility] and patient again became acutely psychotic, yelling profanities, unable to be redirected. Uncooperative and becoming a danger to himself and others, requiring chemical and physical sedation Time: 0500 Patient still thrashing and agitated, requiring Geodon to calm him. Time: 0600 Patient now calm. Transferred to [facility] ------ Scribe Attestation: Documented by Maria Guadalupe Hernandez, acting as a scribe for Nirav English MD. Provider Scribe Attestation: All medical record entries made by the Scribe were at my direction and personally dictated by me. I have reviewed the chart and agree that the record accurately reflects my personal performance of the history, physical exam, medical decision making, and the department course for this patient. I have also personally directed, reviewed, and agree with the discharge instructions and disposition. Disposition - Clinical Impression Clinical Impression: Psychosis, Paranoid schizophrenia - POA Present On Arrival: None - Disposition Disposition: Other Institution ([facility]) Disposition Time: 05:55 Condition: STABLE Forms: [employer] (German)
[2019-02-28 07:36] VITALS: BP 132/90; PULSE 87; TEMP 98.8
[2019-02-28 21:21] VITALS: O2SAT 98
== END 2019-02-28 05:55 | disposition short-term general hospital (02) ==
LOC: H.ER 16:11
DX: F29 Unspecified psychosis not due to a substance or known physiological condition (principal); F20.0 Paranoid schizophrenia; F31.9 Bipolar disorder, unspecified; D64.9 Anemia, unspecified; E05.90 Thyrotoxicosis, unspecified without thyrotoxic crisis or storm; E11.9 Type 2 diabetes mellitus without complications; E78.00 Pure hypercholesterolemia, unspecified; I11.9 Hypertensive heart disease without heart failure; I51.7 Cardiomegaly; K21.9 Gastro-esophageal reflux disease without esophagitis; Z86.73 Personal history of transient ischemic attack (TIA), and cerebral infarction without residual deficits
CPT/HCPCS: 71045; 80053; 81003; 82948; 83735; 84100; 85025; 93005; 96372; 99285; G0480; J1200; J1630; J2060; J3486; J7030